=== PATIENT | female | born 1990 | race Caucasian/White ===

== ENCOUNTER 2016-09-11 04:55 | Inpatient (IN) | payer OTHER ==
[~2016-09-11] VITALS: Ht 180.3 cm; Wt 136.1 kg
--- NOTE | 2016-09-11 05:15 | NUR ---
PT TO TRIAGE WITH +SI. STATES SHE HAS NOT BEEN TAKING HER MEDICATIONS THE PAST FEW DAYS AND WAS WALKING AROUND OUTSIDE THIS MORNING WHEN SHE HAD THOUGHTS OF HARMING HERSELF BY TAKING ALL HER MEDICATIONS. DENIES HI.
--- NOTE | 2016-09-11 05:20 | NUR ---
PT WANDED BY SECURITY. CHANGED INTO PAPER SCRUBS. 1 BELONGING BAG IN CLOSETM 2 VALUABLES IN SAFE AND 1 BAG TO PHARMACY.
--- NOTE | 2016-09-11 05:35 | NUR ---
BLOODWORK DRAWN AND SENT OFF TO THE LAB.
[2016-09-11 05:38] LABS: ABSOLUTE BASOPHIL COUNT 0.1 /CUMM (0.0-0.2); ABSOLUTE EOSINOPHIL COUNT 0.3 /CUMM (0.0-0.7); ABSOLUTE GRANULOCYTE CT 12.7 /CUMM (1.4-6.5); ABSOLUTE LYMPH COUNT 2.6 /CUMM (1.2-3.4); ABSOLUTE MONOCYTE COUNT 0.8 /CUMM (0.10-0.60); BASOPHIL % 0.4 % (0.0-2.0); EOSINOPHIL % 1.8 % (0-5); GRANULOCYTE % 77.3 % (42.2-75.2); MEAN CORPUSCULAR HGB 31.6 PG (27.0-31.0); MEAN CORPUSCULAR HGB CONC 33.5 G/DL (33.0-37.0); MEAN CORPUSCULAR VOLUME 94.5 FL (81.0-99.0); MEAN PLATELET VOLUME 8.1 FL (7.4-10.4); PLATELET COUNT 362 /CUMM (130-400); RBC DISTRIBUTION WIDTH 14.5 % (11.5-14.5); RED BLOOD CELL CT 4.45 /CUMM (4.20-5.40); WHITE BLOOD CELL COUNT 16.4 /CUMM (4.8-10.8)
--- NOTE | 2016-09-11 05:46 | NUR ---
PT CALM AND COOPERATIVE, AWARE OF NEED FOR URINE SAMPLE
[2016-09-11] MEDS ORDERED: NEURONTIN300 M1 PO (05:55)
[2016-09-11] MEDS ORDERED: LITHIUM CARBON300 M4 PO (05:56)
[2016-09-11] MEDS ORDERED: BUSPIRONE HCL15 M1 PO (05:56)
[2016-09-11] MEDS ORDERED: MINIPRESS5 MG PO (05:57)
[2016-09-11] MEDS ORDERED: QUETIAPINE FUMA50 M1 PO (05:57)
--- NOTE | 2016-09-11 07:33 | NUR ---
urine obtained and sent to lab
--- NOTE | 2016-09-11 07:33 | ED PSYCHIATRIC COMPLAINT ---
History of Present Illness General Chief Complaint: Psychiatric Related Complaint Stated Complaint: +SI Source: patient, old records Exam Limitations: no limitations Vital Signs & Intake/Output Vital Signs & Intake/Output Vital Signs Date Time Temp Pulse Resp B/P Pulse O2 O2 Flow FiO2 Ox Delivery Rate 09/11 1149 96.9 86 18 143/92 96 Room Air 09/11 0940 97.2 94 20 133/82 95 Room Air 09/11 0518 Room Air 09/11 0505 95.4 97 19 139/81 94 Room Air Triage Note: PT TO TRIAGE WITH +SI. STATES SHE HAS NOT BEEN TAKING HER MEDICATIONS THE PAST FEW DAYS AND WAS WALKING AROUND OUTSIDE THIS MORNING WHEN SHE HAD THOUGHTS OF HARMING HERSELF BY TAKING ALL HER MEDICATIONS. DENIES HI. Triage Nurses Notes Reviewed? yes : No Patient currently breastfeeds: No HPI: Patient presents for evaluation of depression and suicide ideation. Patient states that she was walking around earlier this evening trying to clear her head. That point she became somewhat despondent began thinking of suicide via overdose of the medications that she has not been taking over the past few days. Patient states that her suicide ideation is severe and she felt unsafe. She has cut herself in the past. (GERMAINE SEGUNDO,JOLEEN Mclaughlin) Allergies Coded Allergies: No Known Allergies (09/11/16) Reconcile Medications Gabapentin (Neurontin) 300 MG CAPSULE 1 CAP PO TID NERVE PAIN (Reported) [place] Carbonate 300 MG CAPSULE 1 CAP PO BID BIPOLAR (Reported) Prazosin HCl (Minipress) 5 MG CAPSULE 1 CAP PO QPM HTN (Reported) Quetiapine Fumarate 50 MG TABLET 1 TAB PO QPM BIPOLAR (Reported) (MEGHANN SEGUNDO,ZORA Gan) Past History Travel History Traveled to [place] past 21 day No Medical History Any Pertinent Medical History? see below for history Psychiatric: anxiety, bipolar disease Endocrine: hypothyroidism Surgical History Surgical History: non-contributory Psychosocial History What is your primary language Serbian Tobacco Use: Current Not Daily Daily Tobacco Use Amount/Type: =< 4 Cigarettes daily ETOH Use: occasional use Illicit Drug Use: marijuana Family History Hx Contributory? No (GERMAINE SEGUNDO,JOLEEN Mclaughlin) Review of Systems Review of Systems Constitutional: Reports: no symptoms. EENTM: Reports: no symptoms. Respiratory: Reports: no symptoms. Cardiovascular: Reports: no symptoms. GI: Reports: no symptoms. Genitourinary: Reports: no symptoms. Musculoskeletal: Reports: no symptoms. Skin: Reports: no symptoms. Neurological/Psychological: Reports: see HPI. Hematologic/Endocrine: Reports: no symptoms. Immunologic/Allergic: Reports: no symptoms. All Other Systems: Reviewed and Negative (GERMAINE SEGUNDO,JOLEEN Mclaughlin) Physical Exam Physical Exam General Appearance: SEE BELOW Neurological/Psychiatric: SEE BELOW Comments: General: Alert, calm, cooperative Head: Normocephalic, atraumatic Eyes: Normal inspection, no nystagmus, EOMI Ears: Normal inspection Nose: Normal inspection Throat: Moist mucosa Neck: Supple, no goiter Heart: Regular rate and rhythm, no murmurs rubs or gallops Lungs: Clear to auscultation bilaterally with good air entry Abdomen: Soft nontender nondistended, normal bowel sounds Chest: Nontender Extremities: Normal range of motion grossly, mild tremors present, no cyanosis clubbing or edema of the upper extremities Neurologic: cranial nerves II through XII grossly intact, speech clear, gait normal Psychiatric: No apparent delusions or hallucinations, no pressured speech or thought blocking SAD PERSONS Done? DEFERRED TO CRISIS (GERMAINE SEGUNDO,JOLEEN Mclaughlin) Progress Differential Diagnosis: DEPRESSION, SUICIDE IDEATION, BIPOLAR DISORDER, SCHIZOAFFECTIVE DISORDER, BORDERLINE PERSONALITY Plan of Care: Orders Procedure Date/time Status Regular Diet 09/11 D Active Regular Diet 09/11 B Complete Admit to inpatient psych 09/11 1435 Active Patient Data - inpatient psych 09/11 1306 Active Admit to inpatient psych 09/11 1306 Active Add-on Test (ER Only) 09/11 1039 Active ED CRISIS PSYCH CONSULT 09/11 1038 Active Add-on Test (ER Only) 09/11 0543 Active TSH REFLEX 09/11 0531 Complete TOTAL TRIODOTHYROXINE 09/11 0531 Complete LITHIUM 09/11 0531 Complete FREE T4 09/11 0531 Complete URINE DRUG SCREEN FOR ER ONLY 09/11 0514 Complete THYROID STIMULATING HORMONE 09/11 0514 Complete HUMAN BETA HCG SCREEN 09/11 0514 Complete ETHANOL 09/11 0514 Complete COMPREHENSIVE METABOLIC PANEL 09/11 0514 Complete CBC WITHOUT DIFFERENTIAL 09/11 0514 Complete Vital Signs 09/11 UNK Active Activity/Ambulation 09/11 UNK Active Current Medications Sig/Joe Start time Last Medication Dose Stop Time Status Admin Levothyroxine Sodium 0.05 MG DAILY AC 09/12 0700 UNVr (Synthroid) [place] Carbonate 300 MG AT BEDTIME 09/11 2199 UNVr Prazosin HCl 1 MG QPM 09/11 2199 UNVr (Minipress 5 MG) Quetiapine Fumarate 200 MG AT BEDTIME 09/11 2199 UNVr (Seroquel) Gabapentin 300 MG TID 09/11 1599 CANr (Neurontin) Quetiapine Fumarate 50 MG TID 09/11 1600 UNVr (SEROquel) Laboratory Tests 09/11/16 0727: Urine Opiates Screen < 700.00, Methadone Screen < 40, Barbiturate Screen < 60, Ur Phencyclidine Scrn < 6.00, Amphetamines Screen < 100, U Benzodiazepines Scrn < 85, Urine Cocaine Screen < 50, Urine Cannabis Screen > 80.00 H 09/11/16 0543: TSH &T3 &Free T4 Intrp Cancelled 09/11/16 0531: Anion Gap 12, Estimated GFR > 60, BUN/Creatinine Ratio 13.8, Glucose 106 H, Calcium 9.7, Total Bilirubin 0.9, AST 18, ALT 27, Alkaline Phosphatase 82, Total Protein 7.8, Albumin 4.5, Globulin 3.3, Albumin/Globulin Ratio 1.4, TSH 44.400 H, Free T4 0.74 L, Total T3 1.13, TSH &T3 &Free T4 Intrp 44.400 H, Total Beta HCG NEGATIVE, CBC w Diff NO MAN DIFF REQ, RBC 4.45, MCV 94.5, MCH 31.6 H, RDW 14.5, MPV 8.1, Gran % 77.3 H, Lymphocytes % 15.8 L, Monocytes % 4.7, Eosinophils % 1.8, Basophils % 0.4, Absolute Granulocytes 12.7 H, Absolute Lymphocytes 2.6, Absolute Monocytes 0.8 H, Absolute Eosinophils 0.3, Absolute Basophils 0.1, PUBS MCHC 33.5, [place] < 0.2 L, Serum Alcohol < 10.0 Departure Departure Condition: Stable Referrals: PATIENT HAS NO PRIMARY CARE DR (PCP/Family) Departure Forms: Customer Survey General Discharge Information (GERMAINE SEGUNDO,JOLEEN Mclaughlin) Departure Disposition: STILL A PATIENT Clinical Impression Primary Impression: Depression Secondary Impressions: Hypothyroid Psych Admission Note Psychiatric Admission: I have seen and evaluated SWATI TRACY. I have also reviewed all the pertinent lab results and diagnostic results. SWATI TRACY will be admitted to our inpatient Psychiatric unit for treatment and care. (MEGHANN SEGUNDO,ZORA Gan)
--- NOTE | 2016-09-11 08:01 | NUR ---
ASSUMED CARE OF PT AT THIS TIME. PT SLEEPING ON STRETCHER, REG RESP RATE NOTED. SITTER REMAINS PRESENT AT THIS TIME. WILL CTM
--- NOTE | 2016-09-11 10:51 | NUR ---
CRISIS AT BEDSIDE
[2016-09-11 11:13] LABS: LITHIUM < 0.2 mmol/L (0.6-1.2)
--- NOTE | 2016-09-11 11:50 | NUR ---
PT MEDICATED WITH SYNTHROID 0.05MG AND NEURONTIN 300MG. PT IS CALM AND COOPERATIVE AT THIS TIME. PT ASKED THAT THE LIGHT BE TURNED OFF IN ROOM 15 DUE TO HEADACHE. PT REPORTS THE NEURONTIN WILL HELP WITH HER HEADACHE. SITTER AT DOOR FOR SAFETY.
--- NOTE | 2016-09-11 13:09 | ED PSYCH CRISIS CONSULTATION ---
Crisis Consult Basic Assessment Date of Consult: 09/11/16 Responsible Person/Accompanied By: Kye Garcia, father Insurance Authorization: Insurance #1: Insurance name: ELADIO GARCIA Phone number: Policy number: [id number] Group number: Authorization number: ED Provider: Patient's ED Provider: JOLEEN [place] MD Primary Care Physician: Patient's PCP: PATIENT HAS NO PRIMARY CARE DR PCP's Phone Number: Current Psychiatrist: none now was Dr at [facility] seen once Chief Complaint: Psychiatric Related + S.I. Patient's Quote: " I just stopped my meds. Clementina been cutting. Thinking/planning O.D. Present Illness: Patient is a 25 year old unmarried, causasian female who came to [facility] on own, after being "kicked out" of the current place that she has been staying which was in [place]. Patient reports feeling frustrated and suicidal due to her life "going nowhere", and her not having any place to stay, reg with others since she was discharged from [facility] in [place] as her 90 day stay was over. Patient had gotten to [facility] after being in [facility], and being hospitalized 3 times in 2016 (at [place]; [place]; and [facility]), for suicidal ideation, and having had an attempt with pills, in addition to cutting serlf, although that was mostly superficial and more for relief of anxiety. Patient reports life got much wirse since her mother 3 years ago, and at that time she had to find alternate places to stay, many of which carried conditions that she perform some services. Patient has had jobs, but has no real body of work, having lost many jobs due to stealing. 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 Apparently mother did not push patient very much, and patient helped care for her grandmother whose house they lived in, and then her mother when she got ill. Eventually she was evicted, and found self going from place to place, and started using heroin: 2-3 bundles/day. She states that she has been completely clean since February of 2016, and only used "some weed when I stopped my meds about one wek ago" Patient cites only support is her father, and she is hopeful that she could return to his home at some point after proving that she was clean. Spoke with father and his who say that that can't happen because she has stolen from them too many times. Patient is despondent about situation, which she knows she has caused. Patient's Address: [address] [place] [address] Other Phone Number: Who Do You Live With? Other (see notes) (various friends) Family/Informants Interviewed: Father, Kye Garcia step-mother, Leslie Allergies - Coded Allergies: No Known Allergies (09/11/16) Current Medications - Scheduled Medications Gabapentin (Neurontin) 300 MG CAPSULE 1 CAP PO TID NERVE PAIN (Reported) Entered as Reported by ARMINDA MENENDEZ on 09/11/16554 Last Taken: At an unknown date and time [place] Carbonate 300 MG CAPSULE 1 CAP PO BID BIPOLAR (Reported) Entered as Reported by ARMINDA MENENDEZ on 09/11/16555 Last Taken: At an unknown date and time Prazosin HCl (Minipress) 5 MG CAPSULE 1 CAP PO QPM HTN (Reported) Entered as Reported by ARMINDA MENENDEZ on 09/11/16556 Last Taken: At an unknown date and time Quetiapine Fumarate 50 MG TABLET 1 TAB PO QPM BIPOLAR (Reported) Entered as Reported by ARMINDA MENENDEZ on 09/11/16556 Last Taken: At an unknown date and time Discontinued Medications Buspirone HCl 15 MG TABLET 1 TAB PO BID ANXIETY (Reported) Discontinued reason: Med no longer needed Last Taken: At an unknown date and time Laboratory Results: Laboratory Tests 09/11/16726: Urine Opiates Screen < 700.00, Methadone Screen < 40, Barbiturate Screen < 60, Ur Phencyclidine Scrn < 6.00, Amphetamines Screen < 100, U Benzodiazepines Scrn < 85, Urine Cocaine Screen < 50, Urine Cannabis Screen > 80.00 H 09/11/1643: TSH &T3 &Free T4 Intrp Cancelled 09/11/1631: Anion Gap 12, Estimated GFR > 60, BUN/Creatinine Ratio 13.8, Glucose 106 H, Calcium 9.7, Total Bilirubin 0.9, AST 18, ALT 27, Alkaline Phosphatase 82, Total Protein 7.8, Albumin 4.5, Globulin 3.3, Albumin/Globulin Ratio 1.4, TSH 44.400 H, Free T4 0.74 L, Total T3 1.13, TSH &T3 &Free T4 Intrp 44.400 H, Total Beta HCG NEGATIVE, CBC w Diff NO MAN DIFF REQ, RBC 4.45, MCV 94.5, MCH 31.6 H, RDW 14.5, MPV 8.1, Gran % 77.3 H, Lymphocytes % 15.8 L, Monocytes % 4.7, Eosinophils % 1.8, Basophils % 0.4, Absolute Granulocytes 12.7 H, Absolute Lymphocytes 2.6, Absolute Monocytes 0.8 H, Absolute Eosinophils 0.3, Absolute Basophils 0.1, PUBS MCHC 33.5, [place] < 0.2 L, Serum Alcohol < 10.0 Past History Past Medical History Psychiatric: anxiety, bipolar disease Endocrine: hypothyroidism Past Surgical History Surgical History: non-contributory Psychosocial History Strengths/Capabilities: resilient intelligent Physical Limitations (Interventions): none Psychiatric Treatment History Psych Treatment Psychiatric Treatment Yes Inpatient Treatment Yes Outpatient Treatment Yes Location of Treatment [facility] Reason for Treatment Schizoaffective suicidal ideation Dates of Treatment one admit at 14 y. o. # in 2016, and once in 2009 and 2011 ? Response to Treatment stabilized Diagnosis by History: Schizoaffective bipolar opiate use disorder Substance Use/Abuse History Drug Use/Abuse 1 Substances Used/Abused Yes Substance Used/Abused Marijuana First Use age 14 Last Used yesterday How much used/taken joint How often had been very , but clean completely since 03-01, until last week For how long 10 years Route of use smoke Drug Use/Abuse 2 Substances Used/Abused Yes Substance Used/Abused Heroin First Use age 21 Last Used early 2015 How much used/taken up to 2-3 bundles/day How often daily For how long 3.5 years Route of use i v Substance Abuse Treatment Substance Abuse Treatment Past Substance Abuse [place] Yes Inpatient Treatment Yes Outpatient Treatment Yes Location of Treatment [facility] Reason for Treatment Opiate Dep Dates of Treatment 2016 Response to Treatment got clean since 03/01 Comments: lengthy history of substance since high school Current Mental Status Mental Status Orientation: Person, Place, Situation Affect: Anxious, Blunted, Constricted Speech: WNL Neuro-vegetative: Energy Decreased, Sleep Disturbance Appearance Appearance- Dress/Hygiene: disheveled tatoos and piercings heavyset Behaviors Thought Process: WNL Thought Content: Auditory Hallucinations, Thought Blocking Memory: WNL Insight: Poor SI/HI Risk Assessment Past Suicidal Ideation/Attempts Yes Current Suicidal Ideation/Att Yes Past Homicidal Ideation/Att: No Current Homicidal Ideation/Attempts No Degree of Intent: Plan Danger To: Self Gravely Disabled: Poor Judgment Risk Factors: access to lethal means, chronic/serious med cond., high anxiety/ distress, history of Violence, history of suicide atmpts, SA/MH hospitalized, substance abuse, isolate/no social support, poor impulse control, limited support Lethality Ratin PTSD Checklist PTSD Done? pt unable to participate ED Management Sitter: Yes Restraints: No DSM5/PS Stressors/Medical Prob Diagnosis' (DSM 5, Stressors, Medical): Schizoaffective, bipolar F25.0 Cannabis use disorder, moderate F121.20 Current GAF: 25 Comments: patient inexplicably stopped medication on own despite trying to get back in good graces with father, her only potential support. long history of very poor judgement and impulse control. Departure Disposition Psych Medical Clearance Date: 09/11/16 Medically Cleared at: 1100 Time Started: 1105 Time Ended: 1150 Psychiatrist Consulted: Dr Rinaldi Time Disposition Established: 1200 Plan for Disposition - Modality: Inpatient Psychiatry Facility: [facility] Rationale for Disposition: patient off meds, and suicidal with plan and history of attempt Type of IP Admission: Voluntary Referrals PATIENT HAS NO PRIMARY CARE DR (PCP/Family)
--- NOTE | 2016-09-11 13:27 | NUR ---
PT MEDICATED WITH MOTRIN 600MG FOR HEADACHE, PIS 7/. APPLIED NICODERM PATCH 21MG TO PT'S LEFT UPPER ARM. PT IS CALM AND COOPERATIVE, WATCHING TV IN ROOM 15 WITH LIGHT OFF. SITTER PRESENT FOR SAFETY.
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
--- NOTE | 2016-09-11 14:57 | CPS MD/APRN INITIAL ASSE PSYCH ---
Psychiatric Admission Production Finisher's Note Reviewed: Yes Patient Seen and Examined: Yes Identifying Information: 25yoF with Schizoaffective disorder and PSD Chief Complaint: "I can't do this anymore" Reaction to Hospitalization: unable to assess at this time History of Present Illness Onset of Illness: past month Circumstances Leading to Admission: unstable housing Problem(s) Justifying Need for Admission: worsening mood and SI Other HPI: Pt notes that discharged from [facility] after her time was complete. She was staying with friends but they "were the wrong people" as ongoing substance use and interpersonal conflict. She decided to try and stay with another friend in [place] but this did not work out. She notes worsening mood, poor sleep, ongoing AHs of voices, and hopelessness. She has been off meds for the past few weeks. Notes passive SI, AHs, some paranoia. Denies recent manic episode. Past Psychiatric History Past Diagnosis(es)- if any: Schizoaffective disorder ND CUD OUD, full sustained remission past 8 months Past Precipitating Factors- if any: unstable housing - Include inpatient and outpatient treatment Treatment History: Tx at [facility] History of Suicide Attempts or Gestures In Feb 2015 wanted to jump off bridge in [place] In May 2014, attempted OD on OTC sleep meds Substance Abuse History: Tobacco: 1ppd Alcohol: rarely Illicits: heroin, last eight months ago, before 2-3 bundles daily; mj occasionally Allergies: Coded Allergies: No Known Allergies (09/11/16) Home Med List: Pt not taking meds for several weeks [place] Seroq[place] Gabapentin Prazosin - Include any medical condition(s) that may - impact the patient's recovery/remission Past Medical History: Hypothyroidism Past History Medical History Blood Transfusion Hx: No Neurological: NONE EENT: NONE Cardiovascular: NONE Respiratory: NONE Gastrointestinal: NONE Hepatic: NONE Renal: NONE Musculoskeletal: NONE Psychiatric: anxiety, bipolar disease Endocrine: hypothyroidism Surgical History Surgical History: none Psychiatric Family/Social Hx Family History Psychiatric Illness: Mother with depression and anxiety Substance Use: Denied Suicides: Denied Social History Living Situation: Homeless, wants to try and live with father if unable to get into residental program Significant Relationships (family/friends): Very few, ?father Education: 9th grade, dropped out becuase she was always in trouble Vocation/Occupation: Unemployed Legal: Denied Healthly Behaviors Screening Tobacco Screening Tobacco Use from ED Docu: Current Daily Use Daily Tobacco Use Amount/Type: =< 4 Cigarettes daily - If tobacco counseling indicated - the following topics are required. - #1 Recognizing dangerous situations. - #2 Coping Skills. - #3 Basic information about quitting. Status of Tobacco Cessation Counseling: #1, #2 AND #3 Completed Cessation Med Status: Nicotine Patch Ordered (and gum ordered) Alcohol Screening - ETOH screen POS if BAL >=80 or Audit-C>= M4/F3 Audit-C Score from Diag Assess: 0 Blood Alcohol Level: Laboratory Tests 09/11 0531 Toxicology Serum Alcohol (<10 MG/DL) < 10.0 Alcohol Use Screening Results: Neg per Audit C &/or BAL - If ETOH counseling indicated - the following topics are required. - #1 Express concern about the patient's - drinking at unhealthy levels, include informing - of national norms for moderate drinking: - men <= 14 drinks/week, max 4 drinks/occasion - women <= 7 drinks/week, max 3 drinks/occasion - #2 Providing feedback, including linking alcohol to - negative physical effects (liver injury, hypertension) - negative emotional effects (relationship problems and - depression) - negative occupational consequences (reduced work - performance) - #3 Advising the patient to abstain from alcohol or - to drink below national norms for moderate drinking - (as listed above). Status of ETOH Use Counseling: N/A B/C NO ETOH Use Metabolic Screening - Screen if on a Neuroleptic Medication - Metabolic screening should include: - Blood Pressure, BMI, Glucose or Hgb A1c, & a - Lipid profile from within the past 365 days. Metabolic Screening () Patient on a neuroleptic(s) . Enter below results for Glucose or Hemoglobin A1C, and lipid panel if obtained during the last 365 days. Pending Blood Pressure: 143/92 Exam and Plan Mental Status Examination Ambulation Status: walking freely, sitting most of the exam Appearance: slightly dishelved, partially shaved head, tatoos Attitude towards examiner: cooperative Psychomotor activity: no none Behavior: cooperative, engaged Quality of speech: nl r/r/p, not pressured Affect: sad, depressed, tearful at times, slightly labile, appropriate Mood: "I just can't go on" Suicidal Ideation: +passive SI Homicidal Ideation: denied Hallucinations: AHs of voices Paranoid/Delusional Material: slight around people staying with Difficulties with thought organization: none, linear and goal directed Insight: fair Judgment: fair Orientation: a/o x4 Cognition: grossly intact Memory Function: grossly intact Estimate of intellectual functioning: average Assets/Strengths Patient Identified Assets/Strengths: wants help, has some family Impression/Plan Impression and Plan: Pt with hx of Schizoaffective disorder and PSD with worsening mood in the setting of homelessness and medication non-compliance. - Include all active medical diagnosis that require tx DSM 5 Diagnosis(es): Schizoaffective disorder PSD - Initial Tx Plan for Active Psych & Medical Conditions Treatment Plan: - Restart lithium at 300mg daily - Discontinue seroquel as not helpful - Start risperidone 0.5mg daily and 1.5mg nightly - Continue gabapentin at 300mg TID - Prazosin restarted at 1mg qhs - Trazodone and hydroxyzine PRNs written - Lipids, A1C, and B12 at AM - Levothyroxine started at ED for hypothyroidism, to continue - Encourage groups and intergration into milieu - Pt would benefit from family meeting with father - Factors that would help patient function - in a less restrictive setting. Factors: stable housing, outpatient f/u
[2016-09-11 16:23] VITALS: BP 152/92
[2016-09-11 19:45] VITALS: BP 146/95
--- NOTE | 2016-09-11 21:38 | RADIOLOGY REPORT ---
EXAMINATION: XR CHEST 2 VIEWS CLINICAL INFORMATION: Cough, expectoration and occasional hemoptysis; question pneumonia. COMPARISON: None. TECHNIQUE: Frontal and lateral views of the chest were obtained. FINDINGS: The heart, great vessels, pulmonary vasculature and mediastinum are normal. The lungs show no focal infiltrate, effusion or pneumothorax. Breast shadows overlie the bilateral lung bases on the frontal view. There is no acute osseous abnormality. IMPRESSION: No active cardiopulmonary disease.
--- NOTE | 2016-09-11 23:01 | NUR ---
PT IS CALM, COOPERATIVE WITH STAFF AND PEERS, AND COMPLAINT WITH UNIT RULES. PT IS OFTEN IN [place], INTERACTING WELL WITH OTHERS. MOOD IS STABLE, AFFECT APPEARS EUTHYMIC TO FULL RANGE, COMMUNICATION IS NORMAL, AND APPETITE IS NORMAL. PT DENIES SI AT THIS TIME.
[2016-09-11] MEDS ORDERED: SYNTHROID175 MCG PO (23:08)
--- NOTE | 2016-09-11 23:31 | NUR ---
PT ADMITTED TO CPS FOR EXACERBATION IN PSYCHIATRIC SYMPTOMS AFTER STOPPING ALL MEDS LAST WEEK. PT REPORTED INCREASE IN DEPRESSION WITH SI, ANXIETY, AND AUDITORY HALLUCINATIONS. DURING INTERVIEW, PT DENIED SI AND AGREED TO TELL STAFF IF THOUGHTS OF SELF HARM RETURN. "CONSTANT" AUDITORY HALLUCINATIONS OF SEVERAL PEOPLE CONVERSING WITH EACH OTHER. DID HAVE COMMAND TYPE HALLUCINATION OF MALE VOICE "TWO DAYS AGO." TODAY THIS MALE VOICE "TELLS ME I'M WORTHLESS." PT WITH PRODUCTIVE COUGH X PAST MONTH. DENIES SOB. "ASTHMA A CHILD" SMOKES CIGARETTES. MOTHER FROM COMPLICATIONS OF COPD. AFEBRILE. HYPERTENSIVE, THOUGH NO KNOWN CARDIAC HX. PT DOES HAVE HX OF HYPOTHYROIDISM AND STATED SHE TAKES SYNTHROID 125MCG DAILY. PT ALSO OBESE. PT ADMITTED TO SMOKING MARIJUANA BUT HAS BEEN SOBER FROM ALCOHOL "SINCE DECEMBER" AND "ALL OTHER DRUGS SINCE FEBRUARY." PT PLEASANT AND COOPERATIVE. SHE PRESENTED THOUGHTS CLEARLY AND LOGICALLY. THOUGH FEELING DEPRESSED, HELPLESS, AND HOPELESS, PT DEMONSTRATED FULL RANGE OF AFFECT. C/O HEADACHE "8." DR GOOD MADE AWARE OF PT STATUS AND NEED FOR H&P WHICH HAS BEEN COMPLETED. BLOOD CULTURES, HIV TEST, AND SPUTUM CULTURE ORDERED AND ALL HAVE BEEN COLLECTED AND SENT TO LAB. CXR ORDERED AND COMPLETED. CLEAN CATCH URINE SPECIMEN STILL NEEDED PT DID NOT PROVIDE ADEQUATE SAMPLE. NEEDS TO BE COLLECTED
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
--- NOTE | 2016-09-12 01:00 | Admission Certification ---
Admission Certification Certification Statement - As attending physician, I certify that at the time of - admission, based on clinical presentation, severity of - symptoms, need for further diagnostic testing and - therapeutic interventions, and risk of adverse outcomes - without in-hospital treatment, in my clinical assessment, - this patient requires an acute hospital stay for a minimum - of two nights or longer. I have also considered psychsocial - factors such as support system, advanced age, financial - issues, cognitive issues, and failed out-patient treatments, - past re-admission history, safety of patient, and lack of - compliance as applicable. Specific rationale supporting this admission is: Depression and suicidal ideation
[2016-09-12 07:40] VITALS: BP 146/91
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
[2016-09-12 12:22] VITALS: BP 127/92
--- NOTE | 2016-09-12 13:19 | Cons- Endocrinology ---
General Information and HPI Consulting Request Date of Consult: 09/12/16 Requested By: Manuel Reason for Consult: management of hypothyroidism Source of Information: patient Exam Limitations: no limitations History of Present Illness: 25 Yo F with PMHx hypothyroidism, bipolar disorder, history of drug abuse presented with suicidal ideation. Patient was admitted in Inpatient Psychiatry for depression, suicidal ideation, auditory hallucinations. Blood work done on 09/11/2016 showed TSH 44.4, free T4 0.74 and TT3 1.13. She was diagnosed with hypothyroidism at age of 10 and was supposed to be on Levothyroxine 125 mcg daily. However, she ran out of her thyroid medication about one week ago. Allergies/Medications Allergies: Coded Allergies: No Known Allergies (09/11/16) Home Med List: Gabapentin (Neurontin) 300 MG CAPSULE 1 CAP PO TID NERVE PAIN (Reported) Levothyroxine Sodium (Synthroid) 125 MCG TABLET 1 TAB PO DAILY THYROID PROBLEMS (Reported) [place] Carbonate 300 MG CAPSULE 1 CAP PO BID BIPOLAR (Reported) Prazosin HCl (Minipress) 5 MG CAPSULE 1 CAP PO QPM HTN (Reported) Quetiapine Fumarate 50 MG TABLET 1 TAB PO QPM BIPOLAR (Reported) Review of Systems Review of Systems Constitutional: Reports: see HPI. Cardiovascular: Denies: chest pain, palpitations. Respiratory: Denies: short of breath. GI: Denies: abdominal pain. Genitourinary: Denies: dysuria. Hematologic/Endocrine: Reports: see HPI (fatigue and mood changes). Past History Travel History Traveled to [place] past 21 day No Medical History Blood Transfusion Hx: No Neurological: CHRONIC HEADACHES EENT: NONE Cardiovascular: NONE Respiratory: asthma Gastrointestinal: NONE Hepatic: NONE Renal: NONE Musculoskeletal: NONE Psychiatric: anxiety, bipolar disease, depression, SCHIZOAFFECTIVE Endocrine: hypothyroidism Blood Disorders: NONE Cancer(s): NONE SUPERVISOR TRAIN OPERATIONS/Reproductive: NONE Surgical History Surgical History: non-contributory Family History Relations & Conditions If Any: FATHER FH: diabetes mellitus FH: HTN (hypertension) MOTHER FH: COPD (chronic obstructive pulmonary disease) FH: HTN (hypertension) Psychosocial History Where Do You Live? Other (multiple places) Services at Home: None Primary Language: Monegasque Smoking Status: Current Everyday Smoker (1 ppd) ETOH Use: occasional use Illicit Drug Use: denies illicit drug use (hx heroine smok, cocaine snort), marijuana Living Will? unknown Power of Conductor/Engineer/HCP? unknown Functional Ability ADLs Independent: dressing, eating, toileting, bathing. Ambulation: independent IADLs Independent: shopping, housework, finances, food prep, telephone, transportation , medication admin. Employment History Employment: Unemployed Exam & Diagnostic Data Last 24 Hrs of Vital Signs/I&O Vital Signs Date Time Temp Pulse Resp B/P Pulse O2 O2 Flow FiO2 Ox Delivery Rate 09/12 1222 88 127/92 09/12 1125 Room Air 09/12 0740 97.0 96 146/91 09/11 2101 Room Air 09/11 1945 97.6 90 146/95 09/11 1623 97.8 93 152/92 09/11 1458 97.2 88 16 155/99 96 Room Air Intake & Output 09/12 1600 09/12 0800 09/12 0000 Intake Total Output Total Balance Patient 300 lb Weight Physical Exam General Appearance: no apparent distress Neck: thyromegaly (especially in her isthmus) Respiratory: lungs clear Cardiovascular: regular rate/rhythm Gastrointestinal: soft, non-tender Extremities: no edema Labs/Carroll Results: Laboratory Tests 09/12 09/12 09/11 0630 0630 2306 Chemistry Hemoglobin A1c (4.2 - 5.8 %) Cancelled 5.3 Triglycerides (<150 mg/dL) 100 Cholesterol (<200 MG/DL) 182 LDL Cholesterol, Calc (65 - 129 mg/dL) 120 HDL Cholesterol (40 - 60 mg/dL) 42 Cholesterol/HDL Ratio (0.00 - 4.23 %) 4 Vitamin B12 (239 - 931 pg/mL) 415 Serology HIV 1&2 Ab Western Blot (NONREACTIVE) NONREACTIVE 09/11 09/11 0727 0543 Chemistry TSH &T3 &Free T4 Intrp Cancelled Toxicology Urine Opiates Screen (>2000 NG/ML) < 700.00 Methadone Screen (>300 NG/ML) < 40 Barbiturate Screen (>200 NG/ML) < 60 Ur Phencyclidine Scrn (>25 NG/ML) < 6.00 Amphetamines Screen (>1000 NG/ML) < 100 U Benzodiazepines Scrn (>200 NG/ML) < 85 Urine Cocaine Screen (>300 NG/ML) < 50 Urine Cannabis Screen (>50 NG/ML) > 80.00 H 09/11 0531 Chemistry Sodium (137 - 145 mmol/L) 142 Potassium (3.5 - 5.1 mmol/L) 4.3 Chloride (98 - 107 mmol/L) 104 Carbon Dioxide (22 - 30 mmol/L) 26 Anion Gap (5 - 16) 12 BUN (7 - 17 mg/dL) 11 Creatinine (0.5 - 1.0 mg/dL) 0.8 Estimated GFR (>60 ml/min) > 60 BUN/Creatinine Ratio (7 - 25 %) 13.8 Glucose (65 - 99 mg/dL) 106 H Calcium (8.4 - 10.2 mg/dL) 9.7 Total Bilirubin (0.2 - 1.3 mg/dL) 0.9 AST (14 - 36 U/L) 18 ALT (9 - 52 U/L) 27 Alkaline Phosphatase (<127 U/L) 82 Total Protein (6.3 - 8.2 g/dL) 7.8 Albumin (3.5 - 5.0 g/dL) 4.5 Globulin (1.9 - 4.2 gm/dL) 3.3 Albumin/Globulin Ratio (1.1 - 2.2 %) 1.4 TSH (0.270 - 4.200 uIU/mL) 44.400 H Free T4 (0.79 - 2.35 ng/dL) 0.74 L Total T3 (0.97 - 1.69 ng/mL) 1.13 TSH &T3 &Free T4 Intrp (0.270 - 4.20 uIU/mL) 44.400 H Total Beta HCG (NEGATIVE) NEGATIVE Hematology CBC w Diff NO MAN DIFF REQ WBC (4.8 - 10.8 /CUMM) 16.4 H RBC (4.20 - 5.40 /CUMM) 4.45 Hgb (12.0 - 16.0 G/DL) 14.1 Hct (37 - 47 %) 42.0 MCV (81.0 - 99.0 FL) 94.5 MCH (27.0 - 31.0 PG) 31.6 H RDW (11.5 - 14.5 %) 14.5 Plt Count (130 - 400 /CUMM) 362 MPV (7.4 - 10.4 FL) 8.1 Gran % (42.2 - 75.2 %) 77.3 H Lymphocytes % (20.5 - 51.1 %) 15.8 L Monocytes % (1.7 - 9.3 %) 4.7 Eosinophils % (0 - 5 %) 1.8 Basophils % (0.0 - 2.0 %) 0.4 Absolute Granulocytes (1.4 - 6.5 /CUMM) 12.7 H Absolute Lymphocytes (1.2 - 3.4 /CUMM) 2.6 Absolute Monocytes (0.10 - 0.60 /CUMM) 0.8 H Absolute Eosinophils (0.0 - 0.7 /CUMM) 0.3 Absolute Basophils (0.0 - 0.2 /CUMM) 0.1 PUBS MCHC (33.0 - 37.0 G/DL) 33.5 Toxicology [place] (0.6 - 1.2 mmol/L) < 0.2 L Serum Alcohol (<10 MG/DL) < 10.0 Assessment/Plan Assessment/Plan 25 Yo F with PMHx hypothyroidism, bipolar disorder, history of drug abuse presented with suicidal ideation. Patient was admitted in Inpatient Psychiatry for depression, suicidal ideation, auditory hallucinations. Blood work done on showed TSH 44.4, free T4 0.74 and TT3 1.13. She was supposed to be on Levothyroxine 125 mcg daily. However, she ran out of her thyroid medication about one week ago. In hospital, she was put on Levothyroxine 50 mcg daily. Hypothyroidism: 1. I will give patient additional Levothyroxine 100 mcg this afternoon. 2. starting tomorrow, she will be on Levothyroxine 125 mcg daily; 3. I will check TFT and thyroid antibody on 09/15/2016. 4. I will recommend having a thyroid u.s done. will follow. Consult Acknowledgment - Thank you for your consult request.
--- NOTE | 2016-09-12 13:30 | SOCIAL WORKER PROG NOTE PSYCH ---
See Addendum Social Work Progress Note Progress Note SW met with patient for the first time today. Patient presented as tearful and depressed. She reported feeling very overwhelmed due to "constant chatter". Patient reports hearing continuously throughout the day up to 6 different voices talking to eachother. She is unable to makeout what the voices are saying and they are not command in nature. Patient reports that she does not feel the medication she is on is helpful and wishes for a change. Patient reports that she is currently homeless and is unsure where she will go post discharge from the hospital. This press writer went over the possibility of patient needing to call 211 for a care home bed. Patient was provided a list of sober houses to call and she is going to see if they take basic needs for payment. Patient signed NIKO for this press writer to speak to her father, Kye ([phone]), and this press writer called and spoke to him. Kye reported that he is currently out of work because their house is being remodeled. He reports that he recently was discharged from the hospital due to cardiac issues. He reported that he plans to return to work on Monday and does not believe he will have time to come in for a family meeting between the house remodeling/returning to work. He did agree to have a phone conference this afternoon at 4pm. Patient plans to discuss with him the potential of becoming homeless and wishing to stay with him before securing a bed at a care home.
--- NOTE | 2016-09-12 14:16 | NUR ---
Notified by patient hearing voices increasing this afternoon. "I couldn't even sit in group." Patient reports no SI or HI at this time. Marci Burton APRN notified of this. See EMAR. Will continue to monitor.
--- NOTE | 2016-09-12 14:55 | NUR ---
PT IS OUT IN COMMUNITY INTERACTING WITH STAFF AND PEERS. PT IS COMPLIANT AND COOPERATIVE WITH STAFF. PT IS ACTIVE IN GROUPS. PT MOOD IS STABLE WTIH A FULL RANGE AFFECT. PT REPORTS HEARING VOICES. PT DENIES SI THOUGHTS
[2016-09-12 15:51] VITALS: BP 139/96
[2016-09-12 19:40] VITALS: BP 141/80
--- NOTE | 2016-09-12 21:16 | NUR ---
PT IS WIRHDRAWN, IN [place], THOUGH MOSTLY STAYING TO SELF, NOT INTERACTING MUCH WITH OTHERS UNLESS DIRECTLY ENGAGED. PT IS CALM, COOPERATIVE WITH STAFF AND PEERS, AND COMPLIANT WITH UNIT RULES. MOOD IS STABLE, AFFECT IS EUTHYMIC, COMMUNICATION IS NORMAL BUT SPARSE, AND APPETITE IS NORMAL. PT DENIES SI AT THIS TIME.
--- NOTE | 2016-09-13 04:44 | NUR ---
PT APPEARED TO SLEEP THRU THE NIGHT. BORDERLINE EKG TO BE EVALUATED DURING THE DAY TODAY.
--- NOTE | 2016-09-13 04:45 | NUR ---
PT IN BED EARLY, APPEARED TO SLEEP THRU THE NIGHT, SOCIAL WITH SELECT PEERS.
[2016-09-13 07:41] VITALS: BP 150/90
--- NOTE | 2016-09-13 08:35 | CP SOUTH PROGRESS NOTE PSYCH ---
Psych (Inpt) Progress Note Progress Note Include the following elements, when applicable: Involvement in the active treatment of the patient with behavioral observations of the patient and the patient's response to the treatment. Review of the ongoing treatment process in the context of the treatment plan. Indication of how multi-disciplinary staff members are carrying out the treatment plan. Plans for future interventions and recommendations for revision of the treatment plan. Liaison with other physicians/providers. Progress Note: [I discussed this patient's progress to date, current mental status, treatment process in the context of the treatment plan, and discharge planning with staff/ team in the daily morning inpatient team meeting. I also met with the patient myself in individual session.] SUBJECTIVE: "I only slept a few hours last night." OBJECTIVE: Current Medications Sig/Joe Start time Last Medication Dose Route Stop Time Status Admin Acetaminophen 650 MG Q4P PRN 09/12 0845 AC 09/12 PO 0845 Albuterol Sulfate 2 PUF Q4P PRN 09/12 1130 AC INH Azithromycin 250 MG DAILY 09/12 1000 AC 09/13 PO 09/15 1001 0845 Benztropine Mesylate 1 MG 0800,09/12 2200 AC 09/13 PO 0844 Chlorpromazine 25 MG 0809/14 0800 AC PO Chlorpromazine 50 MG 09/13 2200 AC PO Gabapentin 300 MG Q8 09/11 1400 AC 09/13 PO 1352 Hydroxyzine HCl 25 MG Q6PRN PRN 09/11 1500 DC 09/12 PO 1414 Levothyroxine Sodium 0.125 MG DAILY AC 09/13 0700 AC 09/13 PO 0653 [place] Carbonate 300 MG 00 09/12 1000 AC 09/13 PO 0844 [place] Carbonate 300 MG AT BEDTIME 09/11 2200 AC 09/12 PO 2137 Nicotine 21 MG DAILY 09/12 1000 AC 09/13 TOP 0844 Nicotine 2 MG Q2P PRN 09/11 1500 AC 09/13 PO 0846 Prazosin HCl 3 MG QPM 09/13 2200 AC PO Prazosin HCl 2 MG QPM 09/12 2200 DC 09/12 PO 2137 Prazosin HCl 1 MG QPM 09/11 2200 DC 09/11 PO 2130 Risperidone 1 MG 0800 09/13 0800 DC 09/13 PO 0845 Risperidone 2 MG AT BEDTIME 09/12 2200 DC 09/12 PO 2137 Risperidone 0.25 MG Q8P PRN 09/12 1700 DC PO Risperidone 0.5 MG ONE TIME ONE 09/12 1515 DC 09/12 PO 09/12 1516 1509 Risperidone 0.5 MG DAILY 09/12 1000 DC 09/12 PO 0759 Risperidone 1.5 MG AT BEDTIME 09/11 2200 DC 09/11 PO 2130 Trazodone HCl 50 MG .STK-MED ONE 09/12 2133 DC PO 09/12 2133 Trazodone HCl 50 MG AT BEDTIME NEED.. 09/11 1500 DC 09/12 PO 213 Vital Signs Date Time Temp Pulse Resp B/P Pulse O2 O2 Flow FiO2 Ox Delivery Rate 09/13 0741 97.8 98 150/90 09/12 2136 98.1 99 16 141/80 09/12 1940 98.1 99 141/80 09/12 1551 84 139/96 09/12 1222 88 127/92 09/12 1125 Room Air ASSESSMENT: Chart, progress notes, VS, labs, EKG (from last evening) and medication list were reviewed. Met with patient today. She presented A&Ox 4. Speech was normal in rate tone and volume. Eye contact was appropriate. Mood remained "anxious." Affect appeared constricted. She reported sleeping poorly d/t continued +AH and NMAs. She reported hearing 5 voices last night of "chatter." Patient reported she could not identify the content of AH. She reported an absence of AH at present. Patient asked again about starting Thorazine to manage AH given past positive efficacy during [facility] admission in summer. NIKO was obtained from patient to retrieve medical records from [facility]. Patient denied SEs while on Thorazine. Patient reported anxiety of 7/10 (10 being the worst) and depression of 8/10 (10 being the worst). She denied passive and active suicidal ideation, plans and intent. She denied visual hallucinations and homicidal ideation. There was no evidence of paranoia or genevieve delusions. Thought process was linear. Thought content was appropriate. Coginition was grossly intact. She reported having a good appetite and reported energy level was low r/t to poor sleep. There was no evidence of joyce/hypomania. Will switch Risperdal to Thorazine to further target AH. Reviewed risk/benefit/ SE profiles of Thorazine with the patient, who verbalized understanding of medication and was agreeable to trial. Will increase Prazosin from 2mg QHS to 3mg QHS to further target NMA. Patient agreeable to plan. Patient reported tolerating all medications well and denied untoward medication effects. No evidence of movement disorder. AIMS=0. Phone conference was held with the patient, her father, Divine JaffeROBERT mar, and this copywriter. The patient asked her father if she could stay with him and step-mother in their home temporarily while waiting for a group home placement. The patient's father reported that she could not return to their home, as he and his need to stay at a hotel for 1-2 weeks given work being done on their home. The patient's father also reported that it was not an option for the patient to return to their home without them present, nor was it an option for the patient to stay at a hotel with them. The patient appeared sad and dismissed by her father following phone conference. She felt that her step-mother influenced her father's decision and reported having a poor relationship with her. We discussed with the patient other housing options such as sober homes, shelters and Crisis and Respite. Patient reported calling [address] today, and making phone calls to sober houses. PLAN: 1. Continue monitoring the patient on unit for safety, suicidal ideation, AH, and mood. 2. Increase Prazosin to 3mg QHS for NMA. 3. Review [facility] records when in. 4. Continue Azithromycin 250mg as ordered for productive cough. 5. Per Dr. Barrett's endocrine progress note on 09/13/16: Continue Synthroid 125mcg daily for now. Repeat TSH, free T4, thyroid antibody panel on 09/14/16; recommend having thyroid US done as inpatient. Dr. Barrett to continue to follow. 6. Discontinue Risperdal 1mg QAM and 2mg QHS. Start Thorazine 25mg QAM and 50mg QHS for AH. Continue Cogentin 1mg BID. 7. Continue [place] carbonate 300mg BID. Li level scheduled on 09/15/16 at 0600. 8. Dispo planning per primary team. daily for now. Repeat TSH, free T4, thyroid antibody panel on 09/14/16; recommend having thyroid US done as inpatient. Dr. Barrett to continue to follow. 6. Discontinue Risperdal 1mg QAM and 2mg QHS. Start Thorazine 25mg QAM and 50mg QHS for AH. 7. Continue [place] carbonate 300mg BID. Li level scheduled on 09/15/16 at 0600. 8. Dispo planning per primary team.
--- NOTE | 2016-09-13 08:38 | PN- Endocrinology ---
Assessment/Plan Assessment: 25 Yo F with PMHx hypothyroidism, bipolar disorder, history of drug abuse presented with suicidal ideation. Patient was admitted in Inpatient Psychiatry for depression, suicidal ideation, auditory hallucinations. Blood work done on showed TSH 44.4, free T4 0.74 and TT3 1.13. She was supposed to be on Levothyroxine 125 mcg daily. However, she ran out of her thyroid medication about one week ago. In hospital, she was put on Levothyroxine 50 mcg daily initially. Patient received additional Levothyroxine 100 mcg in the afternoon on 09/12. Starting today, she will be on Levothyroxine 125 mcg daily. As per note of H+P, patient has been homeless prior to admission. Plan: 1. continue Levothyroxine 125 mcg daily for now; 2. repeat TSH, free T4 tomorrow to look for a trend. 3. check thyroid antibody panel; 4. recommend having thyroid u.s done as inpatient; will follow Subjective Subjective: She feels better this morning. Objective Last 24 Hrs of Vital Signs/I&O Vital Signs Date Time Temp Pulse Resp B/P Pulse O2 O2 Flow FiO2 Ox Delivery Rate 09/13 0741 97.8 98 150/90 09/12 2137 98.1 99 16 141/80 09/12 1940 98.1 99 141/80 09/12 1551 84 139/96 09/12 1222 88 127/92 09/12 1125 Room Air Physical Exam Neck: thyromegaly, ? palpable thyroid nodule in isthmus
[2016-09-13 12:25] VITALS: BP 141/69
--- NOTE | 2016-09-13 12:52 | NUR ---
PT IS OUT IN THE COMMUNITY INTERACTING AT TIMES WITH STAFF AND PEERS. PT KEEPS MOSTLY TO SELF AND TENDS TO ISOALTIE IN A GROUP SEETING. PT HAS SOME PEERS WHICH SHE WILL INTERACT WITH. PT IS ACTIVE IN GROUPS. PT MOOD IS STABLE WITH A CONSTRICTED AFFECT. PT HAS BEEN ON THE PHONE TRYING TO FIND PLACEMENT OPTIONS. PT DENIES SI THOUGHTS
--- NOTE | 2016-09-13 13:58 | SOCIAL WORKER PROG NOTE PSYCH ---
Social Work Progress Note Progress Note Met with pt, and reached out to her Father via telephone. Staying with her Father is not an option, pt became emotional with this news, but was able to focus on other opportunities for housing, she is aware of many programs in the [facility], and is motivated for treatment and stability. Pt encouraged to make phone calls to [address] and sober hsouies. Pt agrees.
[2016-09-13 16:06] VITALS: BP 142/79
--- NOTE | 2016-09-13 17:16 | ULTRASOUND REPORT ---
EXAMINATION: US THYROID CLINICAL INFORMATION: Hypothyroidism. COMPARISON: None TECHNIQUE: Linear and curved transducer grayscale and color Doppler examination with attention to the region of the thyroid. FINDINGS: SIZE: Measurements of the thyroid lobes and nodules are given in sagittal, anteroposterior and transverse dimensions respectively. Right Thyroid Lobe: 5.8 x 2.6 x 2.8 cm. Left Thyroid Lobe: 7.2 x 2.3 x 2.3 cm. Isthmus: 1.5 cm in maximum AP dimension. PARENCHYMA: The thyroid gland is diffusely heterogeneous and appears hypervascular on color Doppler images. RIGHT THYROID LOBE: No discrete nodules within the heterogeneous lobe. There are scattered, subcentimeter sized hyperechoic areas within the right lobe that have the appearance of pseudonodules. ISTHMUS: There is a 0.5 x 0.4 x 0.5 cm hyperechoic nodule (or pseudonodule) within the isthmus. LEFT THYROID LOBE: There is a 0.8 x 0.7 x 0.8 cm hyperechoic nodule (or pseudonodule) within the mid left lobe. NODES: No lymphadenopathy is seen in the tissue surrounding the thyroid gland. IMPRESSION: - Large, heterogeneous, hypervascular thyroid gland; findings are suggestive of thyroiditis. - Scattered, subcentimeter sized areas of increased echotexture within the gland likely represent pseudonodules. - No lymphadenopathy within the adjacent soft tissues of the neck.
[2016-09-13 20:06] VITALS: BP 139/86
--- NOTE | 2016-09-13 21:51 | NUR ---
Pt is out in the community affect is flat, interacts with her peers. Compliant and cooperative with the staff. c/o no pain vital signs are stable, appetite is good. Will continue to monitor the pt overnight.
--- NOTE | 2016-09-14 05:38 | NUR ---
PT TO HAVE LABS IN THE AM. SHE APPEARED TO SLEEP.
[2016-09-14 07:37] VITALS: BP 142/89
--- NOTE | 2016-09-14 08:02 | CP SOUTH PROGRESS NOTE PSYCH ---
See Addendum Psych (Inpt) Progress Note Progress Note Include the following elements, when applicable: Involvement in the active treatment of the patient with behavioral observations of the patient and the patient's response to the treatment. Review of the ongoing treatment process in the context of the treatment plan. Indication of how multi-disciplinary staff members are carrying out the treatment plan. Plans for future interventions and recommendations for revision of the treatment plan. Liaison with other physicians/providers. Progress Note: [I discussed this patient's progress to date, current mental status, treatment process in the context of the treatment plan, and discharge planning with staff/ team in the daily morning inpatient team meeting. I also met with the patient myself in individual session.] SUBJECTIVE: "I actually slept last night." OBJECTIVE: Current Medications Sig/Joe Start time Last Medication Dose Route Stop Time Status Admin Acetaminophen 650 MG Q4P PRN 09/12 0845 AC 09/12 PO 0845 Albuterol Sulfate 2 PUF Q4P PRN 09/12 1130 AC INH Azithromycin 250 MG DAILY 09/12 1000 AC 09/14 PO 09/15 1001 0757 Benztropine Mesylate 1 MG 0800,09/12 2200 AC 09/14 PO 0757 Chlorpromazine 25 MG 1300 09/14 1300 AC PO Chlorpromazine 25 MG 0800 09/14 0800 AC 09/14 PO 0758 Chlorpromazine 50 MG 09/13 2200 AC 09/13 PO 2119 Gabapentin 300 MG Q8 09/11 1400 AC 09/14 PO 0644 Levothyroxine Sodium 0.125 MG DAILY AC 09/13 0700 AC 09/14 PO 0644 [place] Carbonate 300 MG 09/12 1000 AC 09/14 PO 0757 [place] Carbonate 300 MG AT BEDTIME 09/11 2200 AC 09/13 PO 2117 Nicotine 21 MG DAILY 09/12 1000 AC 09/14 TOP 0758 Nicotine 2 MG Q2P PRN 09/11 1500 AC 09/13 PO 0846 Prazosin HCl 3 MG QPM 09/13 2200 AC 09/13 PO 211 Vital Signs Date Time Temp Pulse Resp B/P Pulse O2 O2 Flow FiO2 Ox Delivery Rate 09/14 736 97.0 87 142/89 09/139 92 139/86 09/13 2005 97.6 92 139/86 09/13 1606 88 142/79 09/13 1529 Room Air 09/13 1225 86 141/69 Lab Free T4 0.77 ng/dL L 09/14/16 0634 TSH 84.700 uIU/mL H 09/14/16 0634 Thyroglobulin Antibody > 500 U/mL H 09/14/16 0634 Thyroid Peroxidase Ab > 1300 U/mL H 09/14/16 0634 09/13/16 US - SOFT TISSUES OF HEAD AND NECK: IMPRESSION: - Large, heterogeneous, hypervascular thyroid gland; findings are suggestive of thyroiditis. - Scattered, subcentimeter sized areas of increased echotexture within the gland likely represent pseudonodules. - No lymphadenopathy within the adjacent soft tissues of the neck. ASSESSMENT: Chart, progress notes, labs, VS, US of soft tissues of head/neck, and medication list were reviewed. Dr. Barrett notifed by nursing today of low Free T4, and elevated TSH/thyroid antibody results. Dr. Barrett will continue to follow. Met with patient today. She presented A&Ox4. Speech was normal in rate tone and volume. Affect was mostly constricted. Mood was "anxious" . Demeanor was calm and polite. She easily engaged in conversation. She reported sleeping well last night since switch from Risperdal to Thorazine. She denied presence of NMA since increase in Prazosin to 3mg QHS. She reported her appetite was "ok." Patient reported calling all of the sober houses on resource list provided to her by Jessica Julio LCSW. She reported that 2 sober houses in [place], [place] may have openings next week. She reported speaking to her friend, Raúl, last evening who lives in [place], [place]. He told her that he may be able to pay for her to stay at a hotel until receiving a placement at a sober house/jail. This tech writer asked if primary team could speak to Raúl to confirm this plan. She reported that he works a full schedule as a mobile security architect and he may not be able to speak during his shift. This tech writer asked the patient if primary team could try to connect with him. She reported she would consider this. The patient reported depression today of 4-5/10 (10 being the worst) and anxiety of 8/10 (10 being the worst) secondary to intermittent vague AH of 5 voices. She reported AH of "chatter," reported she "can't really make out what they're (AH) saying." She denied voices were command in nature, and reported an absence of hearing the male voice who has told her in the past to kill herself. She denied visual hallucinations. Reported a reduction in AH since starting Thorazine last night. She denied active and passive suicidal ideation, plans and intent. She denied homicidal ideation. She appeared future oriented and has been focusing her energy on finding a jail/sober house placement. Thought process was linear and goal-directed. Thought content was appropriate. There was no evidence of paranoia or genevieve delusions. She denied paranoid thoughts. There was no evidence of overt internal stimulation on encounter. Cognition was grossly intact. Patient reported tolerating switch from Risperdal to Thorazine well and denied untoward medication effects. There was no evidence of signs/symptoms of movement disorder. AIMS= 0. Patient agreeable to continue taking medications. Reviewed with patient that if AH occurs throughout the day, Thorazine 25mg could be added in the afternoon. Patient will continue monitoring pattern/intensity of AH throughout the day. This tech writer will check in with patient mid-day, and evaluate need for addition of Thorazine 25mg in the afternoon. Patient agreeable to plan. Checked in with patient this afternoon. She reported continued AH. Will add Thorazine 25mg Q1PM. PLAN: 1. Continue monitoring patient on unit for safety, suicidal ideation, mood and AH. 2. Continue current medications. Add Thorazine 25mg Q1PM for AH. 3. Dr. Barrett from endocrinology will continue to follow patient for abnormal thyroid labs and US. 4. Dispo planning per primary team. evaluate need for addition of Thorazine 25mg in the afternoon. Patient agreeable to plan. Checked in with patient this afternoon. She reported continued AH. Will add Thorazine 25mg Q1PM. PLAN: 1. Continue monitoring patient on unit for safety, suicidal ideation, mood and AH. 2. Continue current medications. Add Thorazine 25mg Q1PM for AH. 3. Dr. Barrett from endocrinology will continue to follow patient for abnormal thyroid labs and US. 4. Dispo planning per primary team.
[2016-09-14 12:26] VITALS: BP 140/60
--- NOTE | 2016-09-14 12:46 | NUR ---
PT HAS BEEN IN HER ROOM A LOT TODAY. SHE DID COME TO PLANNING MEETING AND HER GOAL WAS TO TALK TO RESEARCH CENTER DIRECTOR AND ATTEND GROUPS. PT HAS NOT BEEN FEELING WELL SHE SHARED THAT HER HEAD WAS BOTHERING HER, AND EXPERIENCING THROAT IRRITATION. THIS MHW ADVISED HER TO TALK TO SHEET ROCK APPLICATOR ABOUT SEEING IF SHE CAN GET ANYTHING FOR HER SYMPTOMS. OTHERWISE, PT HAS BEEN COOPERATIVE, AND PLEASANT. WHEN ASKED PT DENIES THOUGHTS TO HURT HERSELF.
--- NOTE | 2016-09-14 13:51 | SOCIAL WORKER PROG NOTE PSYCH ---
Social Work Progress Note Progress Note Patient reports continued anxiety and depression today, specifically regarding her discharge plan from the hospital. Patient reports that yesterday she called every phone number on the list of Sober Houses I provided her on Monday. Patient reports that two of the programs state they take basic needs and reported 1-2 week bed wait and wanting her clinicial information faxed over. I faxed her clinical info today to both programs ([facility] and [facility]). Patient reports that she initially was upset over the phone conference with her father yesterday, but had time to process it and is now not that dissapointed/ surprised by his response. Patient reports a continued desire for sober living post hospitalization and appears motivated to take steps necessary to secure living. Patients insight and judgement appear to be improving and she appeared less sad today then yesterday. Patient reports continued passive SI with no specific plan at present. Patient has called [address] today as well and secured interview for half-way bed. Patient is also interested in [facility] and possibly waiting there until sober bed becomes available at either [facility] or [facility].
--- NOTE | 2016-09-14 13:54 | SOCIAL WORKER TX PLAN PSYCH ---
Treatment Plan - Please Document: - Evidence that there is ongoing collaboration between - the patient and the interdisciplinary team, - including the patient's active participation and - responsibility for engaging in the treatment regimen, - and that the treatment plan is individualized and - relevant to the patient's conditions. - Treatment plan should reflect documentation indicating - that all active therapeutic efforts are included. Strengths/Capabilities: resilient intelligent Physical Limitations (Interventions): none Patient Identified Trmt Goals: "I need to find a better environment to live." Discharge Plan: Sober house Problem/Goals #1 Problem #1: suicidal ideation Goal (Short Term): Today I will attend 2 groups Today I will identify 2 stressors Today I will identify 2 positive supports Today I will work on recognizing 3 emotions I am feeling Goal (Penitentiary): Be free of suicidal thoughts/attempts Develop 3 coping skills to deal with depression Identify 3 positive support systems to call in crisis Develop a crisis plan with 3 cantor people Identify 2 positive traits per week about myself Identify 2 things I have to look forward to Identify 2 positive people in my life and 1 thing I appreciate about them Interventions: Learn ways to manage depressive symptoms accordingly and identify positive supports to manage life stressors and mood fluctuations. Modalities: Encourage groups, education on depression, provide CBT treatment, family meeting. DSM5/PS Stressors/Medical Prob Diagnosis' (DSM 5, Stressors, Medical): Schizoaffective, bipolar F25.0 Cannabis use disorder, moderate F121.20 Current GAF: 25 Treatment Team - Responsibilities of members of the treatment team include: - Medication Management- MD or RACK WORKER - Medication Administration and Monitoring- Nurse - Group Therapy- Occupational Therapist - 1:1 Therapy,Disch Planning,family involvement-Weight Tester
[2016-09-14 15:59] VITALS: BP 139/75
--- NOTE | 2016-09-14 16:32 | PN- Endocrinology ---
Assessment/Plan Assessment: 25 Yo F with PMHx hypothyroidism, bipolar disorder, history of drug abuse presented with suicidal ideation. Patient was admitted in Inpatient Psychiatry for depression, suicidal ideation, auditory hallucinations. Blood work done on showed TSH 44.4, free T4 0.74 and TT3 1.13. She was supposed to be on Levothyroxine 125 mcg daily. However, she ran out of her thyroid medication about one week ago. In hospital, she was put on Levothyroxine 50 mcg daily initially. Patient received additional Levothyroxine 100 mcg in the afternoon on 09/12. She has been on Levothyroxine 125 mcg daily. On 09/14/2016, repeat TSH 84.7, free T4 0.77; anti TPO > 500 and anti TG> 1300. Thyroid u.s showed two small nodules--5 mm nodule in isthmus and 8 mm nodule in left thyroid lobe. Her thyroid gland is enlarged with right lobe 5.8x2.6x2.8 cm and left lobe 7.2x2.3x2.3 cm. Plan: 1. increase Levothyrxine to 175 mcg daily. 2. repeat TSH and free T4 in 2-3 days to look for a trend; 3. with regards to her small thyroid nodules, I will recommend having a repeat thyroid u.s done in 6-12 months. The above plan has been discussed with patient and the team in [facility]. Subjective Subjective: She has no special complaints. Objective Last 24 Hrs of Vital Signs/I&O Vital Signs Date Time Temp Pulse Resp B/P Pulse O2 O2 Flow FiO2 Ox Delivery Rate 09/14 1559 84 139/75 09/14 1226 92 140/60 09/14 0737 97.0 87 142/89 09/13 2119 92 139/86 09/13 2005 97.6 92 139/86 Results Pertinent Lab/Carroll Results: Laboratory Tests 09/14 0634 Chemistry TSH (0.270 - 4.200 uIU/mL) 84.700 H Free T4 (0.79 - 2.35 ng/dL) 0.77 L Immunology Thyroglobulin Antibody (< 61 U/mL) > 500 H Thyroid Peroxidase Ab (< 61 U/mL) > 1300 H
[2016-09-14 19:42] VITALS: BP 127/71
--- NOTE | 2016-09-14 21:31 | NUR ---
PT IS CALM, COOPERATIVE WITH STAFF AND PEERS, AND COMPLIANT WITH UNIT RULES. PT IS SLIGHTLY WITHDRAWN, APPEARING IN [place] OFTEN, THOUGH MOSTLY STAYING TO SELF. WILL HOLD CONMVERSATION WHEN DIRECTLY ENGAGED. PT MOOD IS STABLE, AFFECT IS EUTHYMIC, COMMUNICATION IS NORMAL THOUGH SPARSE, AND APPETITE IS NORMAL. PT DENIES SI AT THIS TIME.
--- NOTE | 2016-09-15 06:46 | NUR ---
PATIENT SLEPT ALL NIGHT
[2016-09-15 08:09] VITALS: BP 134/73
[2016-09-15 12:13] VITALS: BP 129/79
--- NOTE | 2016-09-15 12:48 | CP SOUTH PROGRESS NOTE PSYCH ---
Psych (Inpt) Progress Note Progress Note Include the following elements, when applicable: Involvement in the active treatment of the patient with behavioral observations of the patient and the patient's response to the treatment. Review of the ongoing treatment process in the context of the treatment plan. Indication of how multi-disciplinary staff members are carrying out the treatment plan. Plans for future interventions and recommendations for revision of the treatment plan. Liaison with other physicians/providers. Progress Note: [I discussed this patient's progress to date, current mental status, treatment process in the context of the treatment plan, and discharge planning with staff/ team in the daily morning inpatient team meeting. I also met with the patient myself in individual session.] SUBJECTIVE: "I'm pretty anxious." OBJECTIVE: Current Medications Sig/Joe Start time Last Medication Dose Route Stop Time Status Admin Acetaminophen 650 MG Q4P PRN 09/12 0845 AC 09/12 PO 0845 Albuterol Sulfate 2 PUF Q4P PRN 09/12 1130 AC INH Azithromycin 250 MG DAILY 09/12 1000 DC 09/15 PO 09/15 1001 0851 Benztropine Mesylate 1 MG 0800,09/12 2200 AC 09/15 PO 0850 Chlorpromazine 50 MG 1300 09/16 1300 AC PO Chlorpromazine 50 MG 0800 09/16 0800 AC PO Chlorpromazine 25 MG Q8P PRN 09/14 1600 AC 09/15 PO 1515 Chlorpromazine 25 MG 1300 09/14 1300 DC 09/15 PO 1243 Chlorpromazine 25 MG 0800 09/14 0800 DC 09/15 PO 0850 Chlorpromazine 50 MG 09/13 2200 AC 09/14 PO 2121 Gabapentin 300 MG Q8 09/11 1400 AC 09/15 PO 1243 Levothyroxine Sodium 0.175 MG DAILY AC 09/15 0700 AC 09/15 PO 0619 [place] Carbonate 600 MG AT BEDTIME 09/15 2200 AC PO [place] Carbonate 300 MG 0800 09/12 1000 AC 09/15 PO 0851 [place] Carbonate 300 MG AT BEDTIME 09/11 2200 DC 09/14 PO 2120 Nicotine 21 MG DAILY 09/12 1000 AC 09/15 TOP 0851 Nicotine 2 MG Q2P PRN 09/11 1500 AC 09/15 PO 1515 Prazosin HCl 3 MG QPM 09/13 2200 AC 09/14 PO 2120 Vital Signs Date Time Temp Pulse Resp B/P Pulse O2 O2 Flow FiO2 Ox Delivery Rate 09/15 1213 96 129/79 09/15 0809 97.3 90 134/73 09/14 2120 97.7 91 16 127/71 09/14 1942 97.7 91 127/71 09/14 1559 84 139/75 ASSESSMENT: Chart, progress notes, VS, labs and medications list were reviewed. Li = 0.3. Per Dr. Barrett's endocrine consult, repeat TSH and Free T4 will be ordered for tomorrow morning to check for trend. Met with patient today, together with Jessica Julio LCSW, and the patient's [facility] worker, Zoe. We reviewed the patient's treatment progress to date, medication regimen, level of safety, and discharge planning. Zoe and Jessica Julio LCSW, reviewed different housing options with the patient including shelters and sober living placements. Please refer to Jessica Julio LCSW's note for further details. On encounter today, the patient was A&Ox4. She presented calm and cooperative. Affect was constricted. Mood was "anxious." She reported most of her anxiety was surrounding the uncertainty of where she will be discharged to, however, she reported feeling supported by [facility] worker and comfortable being discharged with housing in the [facility] where her [facility] worker's office is located. She also reported anxiety surrounding AH, which remain present. She denied AH was command in nature but continues to endorse these throughout the day. Discussed option of increasing Thorazine to 50mg QAM and Q1PM. Patient was agreeable and reported tolerating medication well with no untoward effects. She reported sleeping well last night. She denied NMA. She denied homicidal ideation. Denied visual hallucinations. She denied active and passive suicidal ideation. She reported anxiety of 7/10 (10 being the worst) and depression of 6/ 10 (10 being the worst). She denied feeling hopeless, worthless and guilty. She reported feeling helpless over present uncertainty of her post-discharge housing situation. There was no evidence of paranoia or genevieve delusions. Thought process was linear and goal-directed. Thought content was appropriate. Cognition was grossly intact. Reviewed subtherapeutic Li level with patient. She was agreeable to increasing QPM dose for further mood stabilization. She denied untoward medication effects. Patient informed of schedule Li level on Monday morning at 0600 and rpt thyroid labs tomorrow morning. Patient agreeable and verbalized understanding. PLAN: 1. Continue monitoring the patient on unit for safety, suicidal ideation, mood and AH. 2. Increase [place] Carbonate from 300mg BID to 300mg QAM and 600mg QHS for mood stabilization. 3. Increase Thorazine from 25mg QAM and Q1PM to 50mg QAM and Q1PM to further target AH. Will continue Thorazine 50mg QHS for now. 4. Continue offering Thorazine 25mg Q8H prn for psychosis/agitation. 5. Continue thyroid management per Dr. Barrett's recommendations. 6. Dispo planning per primary team.
--- NOTE | 2016-09-15 12:58 | NUR ---
PT WAS NOT IN THE [place]IE[place] MUCH TODAY. HER GOAL WAS TO THINK POSITIVE. PT DOES NOT FEEL VERY WELL, AND HAS BEEN SUFFERING FROM A HEADACHE, AND THROAT IRRITATION. SHE HAS SOME INTERACTIONS WITH PEERS AND STAFF, BUT HAS NOT BEEN ATTENDING ANY GROUPS EXCEPT FOR PLANNING MEETING SO FAR. SHE HAS BEEN COOPERATIVE WITH STAFF DIRECTION, AND DENIES THOUGHTS OF HURTING SELF WHEN ASKED.
--- NOTE | 2016-09-15 15:20 | SOCIAL WORKER PROG NOTE PSYCH ---
Social Work Progress Note Progress Note Patient's [facility] worker, Zoe, came in today for a meeting to discuss patients discharge plan/ aftercare options. Patient expressed her desire to discharge to the [place] and seek a assisted environment in the [place] neighborhood. Patient has agreed to attend IOP at [facility] location and reports being familiar with their program from a previous treatment. Patient plans to call [address] the day she discharges the hospital and they will inform her where an immediate assisted bed is available for that night. Zoe plans to meet with patient once she arrives in [place] and together they will come up with more options to secure housing, employment, and finances. Patient reports that she does not feel safe discharging the hospital today and is still reporting depression and anxiety. Patient is aware that we are tentatively planning for Monday and she is in agreement with this plan.
[2016-09-15 16:11] VITALS: BP 135/74
[2016-09-15 19:44] VITALS: BP 140/88
--- NOTE | 2016-09-15 21:18 | NUR ---
PT IS CALM, COOPERATIVE WITH STAFF AND PEERS, AND COMPLIANT WITH UNIT RULES. PT IS IN [place], INTERACTING WELL WITH OTHERS. MOOD IS STABLE, AFFECT IS SLIGHTLY FLAT/CONSTRICTED, COMMUNICATION IS NORMAL, AND APPETITE IS NORMAL. PT DENIES SI AT THIS TIME.
[2016-09-16 07:47] VITALS: BP 142/90
--- NOTE | 2016-09-16 08:30 | CP SOUTH PROGRESS NOTE PSYCH ---
See Addendum Psych (Inpt) Progress Note Progress Note Include the following elements, when applicable: Involvement in the active treatment of the patient with behavioral observations of the patient and the patient's response to the treatment. Review of the ongoing treatment process in the context of the treatment plan. Indication of how multi-disciplinary staff members are carrying out the treatment plan. Plans for future interventions and recommendations for revision of the treatment plan. Liaison with other physicians/providers. Progress Note: [I discussed this patient's progress to date, current mental status, treatment process in the context of the treatment plan, and discharge planning with staff/ team in the daily morning inpatient team meeting. I also met with the patient myself in individual session.] SUBJECTIVE: "I didn't sleep last night." OBJECTIVE: Current Medications Sig/Joe Start time Last Medication Dose Route Stop Time Status Admin Acetaminophen 650 MG Q4P PRN 09/12 0845 AC 09/16 PO 0639 Albuterol Sulfate 2 PUF Q4P PRN 09/12 1130 AC INH Azithromycin 250 MG DAILY 09/12 1000 DC 09/15 PO 09/15 1001 0851 Benztropine Mesylate 1 MG 0800,09/12 2200 AC 09/15 PO 2145 Chlorpromazine 50 MG 1300 09/16 1300 AC PO Chlorpromazine 50 MG 0800 09/16 0800 AC PO Chlorpromazine 25 MG Q8P PRN 09/14 1600 AC 09/15 PO 1515 Chlorpromazine 25 MG 1300 09/14 1300 DC 09/15 PO 1243 Chlorpromazine 25 MG 0800 09/14 0800 DC 09/15 PO 0850 Chlorpromazine 50 MG 09/13 2200 AC 09/15 PO 2146 Gabapentin 300 MG Q8 09/11 1400 AC 09/16 PO 0639 Guaifenesin 10 ML Q6P PRN 09/15 1530 AC 09/16 PO 0639 Levothyroxine Sodium 0.175 MG DAILY AC 09/15 0700 AC 09/16 PO 0639 Mantee Carbonate 600 MG AT BEDTIME 09/15 2200 AC 09/15 PO 2143 Mantee Carbonate 300 MG 0800 09/12 1000 AC 09/15 PO 0851 Mantee Carbonate 300 MG AT BEDTIME 09/11 2200 DC 09/14 PO 2120 Nicotine 21 MG DAILY 09/12 1000 AC 09/15 TOP 0851 Nicotine 2 MG Q2P PRN 09/11 1500 AC 09/15 PO 1515 Prazosin HCl 3 MG QPM 09/13 2200 AC 09/15 PO 2144 Sodium Chloride 2 SPRAY Q4P PRN 09/16 0830 UNVr ROQUE Vital Signs Date Time Temp Pulse Resp B/P Pulse O2 O2 Flow FiO2 Ox Delivery Rate 09/16 0747 96.4 99 142/90 09/15 2144 97.3 91 16 140/88 09/15 1944 97.3 91 140/88 09/15 1611 97 135/74 09/15 1213 96 129/79 Lab Free T4 0.77 ng/dL L 09/14/16 06 Free T4 0.86 ng/dL 09/16/16 06 TSH 84.700 uIU/mL H 09/14/16 06 TSH 62.100 uIU/mL H 09/16/16 06 ASSESSMENT: Chart, progress notes, VS, labs and medication list were reviewed. Rpt Free T4 normalized, and TSH trending down however remains elevated at 62.100. Methods Study Analyst Dr. Barrett to follow. Met with patient today. She presented A&Ox4. Speech was normal in rate, tone and volume. Affect remained constricted. Eye contact was good. She reported her mood as "tired." Reported sleeping poorly last night secondary to "my mind wouldn't shut off." Reported falling asleep at approx. 1AM this morning. She denied NMA. Patient reported preoccupation with disposition plan post-discharge and hesistance to follow up with an emergency discharge on Monday. She reported speaking to a patient on unit who she made friends with and temporarily was invited to stay at this patient's home post-discharge while awaiting a intermediate placement. This underwriter mortgage loan reviewed with patient that this deviated from the plan that was discussed with her [facility] worker, Zoe, yesterday; and that returning to the home of another patient would not be recommended by her primary team due to safety reasons and the patient's sobriety. The patient reported depression of 4/10 (10 being the worst) and anxiety of 8/10 (10 being the worst) secondary to uncertainty of where she will be discharged to. She denied present AH. Continued to report racing thoughts, and will start increased Thorazine 50mg QAM and Q1PM today. She denied feeling worthless or guilty. She reported some feelings of hopelessness and helplessness. She denied active and passive suicidal ideation, plans and intent. She denied homicidal ideation. She denied visual hallucinations. Thought process was linear. Thought content was preoccupied. Cognition was grossly intact. Patient continued to report tolerating medications well and denied untoward medication effects. Received some cough relief from prn robitussin. Will start patient on prn normal saline nasal spray for congestion. PLAN: 1. Continue monitoring the patient on unit for safety, suicidal ideation, mood and AH. 2. Continue current medications. Consider readjusting Thorazine to 50mg QAM and 100mg QHS, if experiencing mid-day tiredness on Thorazine 50mg TID. 3. Start nasal spray Q4H prn for nasal congestion. 4. Endocrine to follow for further thyroid management. 5. Dispo planning per primary team. 6. Discharge likely on Monday with f/u to [facility]. Patient was strongly advised by primary team to f/u with emergency intermediate for housing.
--- NOTE | 2016-09-16 11:45 | SOCIAL WORKER PROG NOTE PSYCH ---
See Addendum Social Work Progress Note Progress Note Patient reports that last evening she had a difficult time falling asleep due to racing thoughts that lasted about 30 minutes. Patient reports that once she fell asleep she was able to sleep throughout the remainder of the night. Patient shared that she has befriended another patient on the unit and they have discussed/planned for patient to stay with her temporarily while waiting to secure bed after interview on 09/22. Patient was advised by this policy writer typist and Marci Geronimo APRN that we do not support or condone this plan and feel that calling [facility] for emergency jail bed would be better discharge plan as we had originally planned. Patient called her [facility] worker, Zoe, and informed her of this plan. She agreed with both myself and Marci that this does not sound like a safe discharge plan and she does not advise it as well, but at the same time will continue to support patient and provide her services. Patient is aware of all of our concerns but appears to have made her mind up about her discharge plan. Patient states that she still plans to attend [facility] and is contacting [facility] today to see if she can arrange for transporation from the temporary house to [place]. Patient plans to discharge on Monday and has been encouraged to rethink this plan over the weekend.
[2016-09-16 12:27] VITALS: BP 126/71
--- NOTE | 2016-09-16 14:09 | NUR ---
PT IS VERY EUTHYMIC AND DEPRESSED IN MOOD. PT IS VISIBLE WITHIN THE COMMUNITY WITH MINIMAL TO NO INTERACTIONS WITH PEERS/STAFF. ATTENDING GROUPS AND TRYING TO "REMAIN POSITIVE". PT SPOKE WITH SW AND DIRECTOR OF A SOBER HOUSE TO FIND OUT ABOUT POTENTIAL BED OPENINGS. VS ARE STABLE AND PT DENIES ANY SI/HI TO THIS MHW.
[2016-09-16 16:14] VITALS: BP 142/77
[2016-09-16 19:33] VITALS: BP 131/76
--- NOTE | 2016-09-16 21:26 | NUR ---
PT IS CALM, COOPERATIVE WITH STAFF AND PEERS, AND COMPLIANT WITH UNIT RULES. PT IS IN [place]IE[place], INTERACTING WELL WITH OTHERS. MOOD IS STABLE, AFFECT IS SLIGHTLY FLAT/CONSTRICTED, COMMUNICATION IS NORMAL, APPETITE IS NORMAL. PT DENIES SI AT THIS TIME.
[2016-09-17 08:15] VITALS: BP 120/93
[2016-09-17 12:15] VITALS: BP 121/76
--- NOTE | 2016-09-17 12:46 | NUR ---
Dr. Barrett on unit at this time following/addressing pt's POC re: thyroid function, per MD pt is doing well. No further orders at this time and Dr. Barrett wrote a couple scripts and they are placed in her chart behind "d/c" tab along with her W-10.
--- NOTE | 2016-09-17 12:53 | PN- Endocrinology ---
Assessment/Plan Assessment: 25 Yo F with PMHx hypothyroidism, bipolar disorder, history of drug abuse presented with suicidal ideation. Patient was admitted in Inpatient Psychiatry for depression, suicidal ideation, auditory hallucinations. Blood work done on showed TSH 44.4, free T4 0.74 and TT3 1.13. She was supposed to be on Levothyroxine 125 mcg daily. However, she ran out of her thyroid medication about one week ago. In hospital, she was put on Levothyroxine 50 mcg daily initially. Patient received additional Levothyroxine 100 mcg in the afternoon on 09/12. She has been on Levothyroxine 125 mcg daily. On 09/14/2016, repeat TSH 84.7, free T4 0.77; anti TPO > 500 and anti TG> 1300. Thyroid u.s showed two small nodules--5 mm nodule in isthmus and 8 mm nodule in left thyroid lobe. Her thyroid gland is enlarged with right lobe 5.8x2.6x2.8 cm and left lobe 7.2x2.3x2.3 cm. Levothyroxine was increased to 175 mcg daily. On 09/16/2016, repeat TSH 62.1 and free T4 0.86. Most likely she will be discharged on 09/19/2016. Plan: 1, continue Levothyroxine 175 mcg daily for now; Rx is done. 2. repeat TSH, free T4 in 2-3 weeks; lab slip is done. 3. f/u in office after discharge; 4. repeat thyroid u.s in 6 months to monitor the size of her thyroid nodules. Subjective Subjective: she feels well. Most likely she will be discharged on 09/19/2016. Objective Last 24 Hrs of Vital Signs/I&O Vital Signs Date Time Temp Pulse Resp B/P Pulse O2 O2 Flow FiO2 Ox Delivery Rate 09/17 1215 86 121/76 /04 0815 97.2 95 120/93 09/16 2100 80 131/76 09/16 1933 98.0 80 131/76 09/16 1614 87 142/77 Results Pertinent Lab/[place] Results: Laboratory Tests 09/16 0637 Chemistry TSH (0.270 - 4.200 uIU/mL) 62.100 H Free T4 (0.79 - 2.35 ng/dL) 0.86
--- NOTE | 2016-09-17 14:45 | NUR ---
PT IS OUT IN COMMUNITY INTERACTING WELL WITH STAFF AND PEERS. PT IS ACTIVE IN GROUPS. PT CAN BE A LITTLE WITHDRAWN AT TIMES FROM STAFF AND PEERS. PT MOOD IS STABLE WITH A FLAT AFFECT. PT IS COMPLIANT WITH UNIT RULES. PT DENIES SI THOGUHTS.
--- NOTE | 2016-09-17 15:55 | CP SOUTH PROGRESS NOTE PSYCH ---
Psych (Inpt) Progress Note Progress Note Thee patient was seen for f/u for Schizoaffective disorder, MRE mmixed, svere, with SI. We reviewed the medical records and assessed progress to date. The patient has been keeping to herself stating that "there are too many people out there for me". When asked how many people around me I tends to cheer a lot of places and they're aggravating so I tends to be isolating. The patient is leery about her discharge plan to go to continue, stating that she had a bad experience when she was there before and that would be a trigger for her. The patient is denying suicidal/homicidal ideation, auditory/visual hallucinations or side effects from the medications. She stated that her medications are helpful citing Thorazine as being helpful with voices and lithium with stabilization and depression. Patient expresses that she has nightmares of traumatic event in December despite the presence and she takes. She continues to worry about her physical conditions and expresses the wish to follow up and maintain clean and sober. For congestion only added Mucinex to her medication regimen. We will continue other medications noted. She understands the risks/benefits/ side effects of it and is agreeable to take it as prescribed. Continue with anticipated discharge planning on Monday she plans on telling the treatment team that she wants to go to a friend and not continue.
[2016-09-17 16:02] VITALS: BP 130/64
[2016-09-17 19:08] VITALS: BP 140/79
--- NOTE | 2016-09-17 20:52 | NUR ---
PT IS STABLE WITH FULL RANGE OF AFFECT. PRESENT WITHIN THE COMMUNITY AND INTERACTING WITH PEERS/STAFF. PT HAS BEEN PLAYING BOARD GAMES AND CARDS WITH PEERS ALL EVENING SHIFT. PT APPEARS TO BE LAUGHING AND ENJOYING HERSELF. VS ARE STABLE AND DENIES ANY SI/HI TO THIS MHW.
--- NOTE | 2016-09-18 06:18 | NUR ---
PT SLEPT WELL. LABWORK DONE IN THE AM.
[2016-09-18 07:42] VITALS: BP 142/87
[2016-09-18 12:17] VITALS: BP 141/81
--- NOTE | 2016-09-18 14:24 | NUR ---
PT VISIBLE FOR SOME OF THE DAY IN THE MILIEU. PT HAS COMPLAINED OF A HEADACHE, AND SINUS PAIN THIS MORNING IN PLANNING MEETING. SHE HAS BEEN LAYING DOWN A LOT AND SOCIALIZING WITH SELECT PEERS, PRIMARILY HER ROOMMATE. PT HAS BEEN COOPERATIVE, AND PLANS TO BE DISCHARGED TOMORROW. PT DENIES HAVING THOUGHTS TO HURT HERSELF WHEN ASKED.
[2016-09-18 16:05] VITALS: BP 119/72
[2016-09-18 19:30] VITALS: BP 120/82
--- NOTE | 2016-09-18 20:08 | CP SOUTH PROGRESS NOTE PSYCH ---
Psych (Inpt) Progress Note Progress Note The patient was seen for follow-up for schizoaffective disorder, most recent episode mixed, currently in remission. The patient was discussed with unit staff and seen individually. According to the nursing staff she has been sleeping and eating well, keeping mostly to herself but when interacting with others being appropriate. The patient's lithium level resulted today and is within therapeutic range. The patient denies suicidal/homicidal ideation, auditory/visual hallucinations, or side effects from the medications. The patient understands the risks/benefits/side effects of the medication and is agreeable to continue taking them. The patient continues to state that she will not go to "[place]" and that she has arranged to go to a friend's house. She was advised to discuss with the treatment team tomorrow. The patient feels ready ready to discharge tomorrow, nevertheless not following the indicated plan. We will continue present management, observation, symptom monitoring, and discharge planning. The patient will be followed up daily by the unit psychiatrist. Lab [place] 0.5 mmol/L L 09/18/16 0603
--- NOTE | 2016-09-18 21:29 | NUR ---
PT IS STABLE WITH FULL RANGE OF AFFECT. VISIBLE WITHIN THE COMMUNITY AND INTERACTING WITH PEERS THIS EVENING SHIFT. PT IS ATTENDING GROUPS AND REPORTED THAT SHE IS BEING DC TOMORROW TO A SOBER HOUSE AND WILL MAKE AN ATTEMPT TO START FOLLOW UP CARE ONCE SHE IS SETTLED WITH HER LIVING SITUATION. DENIES ANY SI/HI TO THIS MHW AND VS ARE STABLE.
--- NOTE | 2016-09-19 05:47 | NUR ---
PATIENT SLEPT ALL NIGHT.
[2016-09-19 07:33] VITALS: BP 121/69
--- NOTE | 2016-09-19 08:34 | NUR ---
Will be discharged today to [facility], possibly a sober house or friends and follow up at [facility] [place]. Mood is stable, full range of affect denied thoughts of self harm when asked. Given education on suicide prevention and bipolar d/o.
[2016-09-19] MEDS ORDERED: NICOTINE PATCH1 EAC3 TOP (08:38)
[2016-09-19] MEDS ORDERED: MINIPRESS1 MG PO (08:38)
[2016-09-19] MEDS ORDERED: CHLORPROMAZINE50 M2 PO (08:38)
[2016-09-19] MEDS ORDERED: GABAPENTIN300 M2 PO (08:38)
[2016-09-19] MEDS ORDERED: LITHIUM CARBON300 M4 PO (08:38)
[2016-09-19] MEDS ORDERED: GUAIFENESIN ER600 MG PO (08:38)
[2016-09-19] MEDS ORDERED: BENZTROPINE MESY1 M1 PO (08:38)
--- NOTE | 2016-09-19 08:44 | DISCHARGE SUMMARY REPORT-PSYCH ---
Visit Information Visit Dates/Diagnosis' Admission Date: 09/11/16 Discharge Date: 09/19/16 Reason for Admission: Suicidal ideation and auditory hallucinations. Psy Discharge Primary Diag: Schizoaffective Disorder Psy Discharge Secondary Diag: PTSD; Opiate use disorder in full sustained remission past 8 months; Cannabis use disorder, moderate; hypothyroidism. Hospital Course Significant Lab Findings: Lab Free T4 0.77 ng/dL L 09/14/16 0634 Free T4 0.86 ng/dL 09/16/16 0637 TSH 84.700 uIU/mL H 09/14/16 0634 TSH 62.100 uIU/mL H 09/16/16 0637 TSH &T3 &Free T4 Intrp 44.400 uIU/mL H 09/11/16 0531 Thyroglobulin Antibody > 500 U/mL H 09/14/16 0634 Thyroid Peroxidase Ab > 1300 U/mL H 09/14/16 0634 HIV 1&2 Ab Western Blot NONREACTIVE 09/11/16 2306 Beebe 0.5 mmol/L L 09/18/16 0625 Urine Cannabis Screen > 80.00 NG/ML H 09/11/16 0727 09/12/16 EKG: Sinus rhythm with rate of 82. Borderline T wave abnormalities. IL: 144; QRSD: 108; QT: 376; QTc: 439; P: 65; QRS: 15. T: 39. Borderline EKG confirmed by company tanker truck driver Dr. Ryan Campos. 09/13/16 US-SOFT TISSUES OF HEAD & NECK: FINDINGS: SIZE: Measurements of the thyroid lobes and nodules are given in sagittal, anteroposterior and transverse dimensions respectively. Right Thyroid Lobe: 5.8 x 2.6 x 2.8 cm. Left Thyroid Lobe: 7.2 x 2.3 x 2.3 cm. Isthmus: 1.5 cm in maximum AP dimension. PARENCHYMA: The thyroid gland is diffusely heterogeneous and appears hypervascular on color Doppler images. RIGHT THYROID LOBE: No discrete nodules within the heterogeneous lobe. There are scattered, subcentimeter sized hyperechoic areas within the right lobe that have the appearance of pseudonodules. ISTHMUS: There is a 0.5 x 0.4 x 0.5 cm hyperechoic nodule (or pseudonodule) within the isthmus. LEFT THYROID LOBE: There is a 0.8 x 0.7 x 0.8 cm hyperechoic nodule (or pseudonodule) within the mid left lobe. NODES: No lymphadenopathy is seen in the tissue surrounding the thyroid gland. IMPRESSION: - Large, heterogeneous, hypervascular thyroid gland; findings are suggestive of thyroiditis. - Scattered, subcentimeter sized areas of increased echotexture within the gland likely represent pseudonodules. - No lymphadenopathy within the adjacent soft tissues of the neck. Course Complications: None. Consultations: The patient was seen for admission history and physical by Dr. Lianne Norman. Please see MD note for additional information. The patient was additionally consulted by armature winder repair Dr. Dominique Barrett for abnormal TFTs. Repeat TFTs and thyroid antibodies were checked, and a thyroid ultrasound was completed. The patient's Synthroid was adjusted from 125mcg daily to 175mcg daily for hypothyroidism. The patient was scheduled an outpatient endocrinology appointment with Dr. Dominique Barrett per her recommendation for further thyroid management. Please see thyroid ultrasound results and TFTs above. Allergies: Coded Allergies: No Known Allergies (09/11/16) Hospital Course/TX Response: The patient was monitored on the unit for safety, suicidal ideation, mood and auditory hallucinations. She participated in multimodal treatments on the unit. She was initially started on Risperdal 0.5mg every morning and 1.5mg at bedtime for auditory hallucinations which was increased to 1mg every morning and 2mg at bedtime. Cogentin 1mg twice daily was added for EPS prevention. The patient did not respond to increased Risperdal and elected to switch from Risperdal to Thorazine given past positive efficacy targeting auditory hallucinations. The patient was started on Thorazine 25mg every morning and 50mg at bedtime for auditory hallucinations. Thorazine was increased to 50mg every morning and 100mg at bedtime with good effect. Cogentin 1mg twice daily was continued. Beebe 300mg was started twice daily for mood stabilization and was increased to 300mg every morning and 600mg at bedtime. Patient was restarted on home medication of Prazosin 1mg at bedtime for nightmares which was gradually increased to 3mg at bedtime with good effect. Home medication of Gabapentin 300mg three times daily was also restarted for anxiety. Synthroid 125mcg every morning was increased to 175mcg every morning for hypothyroidism per Dr. Barrett recommendation. The patient tolerated all medications well and denied untoward medication effects. During the hospital course, the patient's mood and affect improved. Suicidal ideation, auditory hallucinations and nightmares remitted. A phone conference was held with the patient, the patient's father, Divine ROBERT Walter, and this senior technical writer. The patient's treatment progress, medication regimen, level of safety and discharge planning were reviewed. One of the patient's main barriers during this hospital course was homelessness. The patient's father refused to have the patient return into his care and did not want to be involved in her inpatient treatment. The patient was agreeable to call 211 for an usp placement and intake. The patient received a usp intake at [facility] in [place] on 09/22/16. The patient was also secured a temporary housing placement at [facility] in [place], [place]. However, the patient refused this recommended placement in addition to calling 211 for an emergency shleter placement. She chose to reside with another CPS female patient post- discharge from hospital despite this not being recommended by CPS treatment team. CPS treatment team reviewed the risks of this plan including the patient's safety and risk of relapse. The patient verbalized understanding but remained adament about returning to the home of this female CPS patient. A second phone conference was held with the patient, her [facility] worker, Zoe, Jessica Julio LCSW, and this senior technical writer. The patient's discharge plan was reviewed with [facility] workerZoe, who also was in agreement with the CPS treatment team's recommendations. [facility] workerZoe, however reported that she would resume services with the patient and continue to support her treatment despite her location of residence. The patient was agreeable to follow-up for Dual Dx IOP treatment at [facility] in [place], [place]. The patient and her [facility] workerZoe, were in favor of discharge plan. On the date of discharge, 09/19/16, the patient presented alert and oriented to person, place, time and situation. Speech was normal in rate, tone and volume. Eye contact was appropriate. She had no complaints. She reported her mood was "really good, the voices are gone and I'm sleeping." Affect was torres in range. She reported anxiety of 4/10 (10 being the worst) and depression of 2/10 (10 being the worst). She denied feeling hopeless, helpless, worthless and guilty. She denied active and passive suicidal ideation, plans and intent. She denied homicidal ideation. She stated and also believed she will not harm herself or others. She identified protective factors of her ABH worker "Zoe" and "my sobriety." She denied auditory and visual hallucinations. Thought process was linear and goal-directed. Thought content was appropriate. There was no evidence of paranoia or genevieve delusions. She reported her sleep and appetite were good. She reported resolution of nightmares. She expressed motivation to follow-up at [facility] tomorrow for IOP intake and continue dual diagnosis treatment there. She also expressed motivation to maintain sobriety. She was strongly advised to abstain from all substances, and to attend daily AA/NA meetings, and obtain a sponsor for continued support in sobriety. She refused [facility] in [place], [place] and reported that she would stay with a female patient from [facility] post-discharge. This plan was strongly discouraged by [facility] treatment team. Patient's ABH worker, Zoe, was informed of this plan. Patient was advised to call 211 for placement at an emergency usp instead of returning to the home of female CPS patient. The patient however refused this option. The patient reported tolerating all medicatins well and denied untoward medication effects. The patient reported feeling safe and ready for discharge. Discharge HBIPS - Tobacco Use Treatment Offered Post DC Medications Offered: Script Given-See Med List Post DC Tobacco Treatment Plan: Refused Tobcco Tx Pgm - EtOH/Drug Use D/O Treatment Offered Post DC Medications Offered: Med Not Indicated for D/O Post DC EtOH/SubAbuse TX Plan: Other SubAbuse/Dual Pgm Program Appt Date: 09/20/16 Metabolic Screening - Screen if on a Neuroleptic Medication - Metabolic screening should include: - Blood Pressure, BMI, Glucose or Hgb A1c, & a - Lipid profile from within the past 365 days. Metabolic Screening () Not Applicable, patient not on a neuroleptic. OR ([X]) Patient on a neuroleptic(s) . Enter below results for Glucose or Hemoglobin A1C, and lipid panel if obtained during the last 365 days. BMI: Blood Pressure: 121/69 Laboratory Results (If applicable): Lab Cholesterol 182 MG/DL 09/12/16 0630 Cholesterol/HDL Ratio 4 % 09/12/16629 HDL Cholesterol 42 mg/dL 09/12/16629 Hemoglobin A1c 5.3 % 09/12/16629 LDL Cholesterol, Calc 120 mg/dL 09/12/16629 Triglycerides 100 mg/dL 09/12/16629 Discharge Instructions General Discharge Information Discharge Medications: Discharge Medications- (Dose, route, freq, indication): START taking these NEW Home Medications: Nicotine (Nicotine Dose: On the skin, DAILY for Qty: 14 Printed Patch) 21 MG/24 HOUR 21 Milligram nicotine cessation Refills: 0 PATCH.TD24 Apply 1 patch topically every morning and remove before bedtime. Last Taken:09/19/16 Time:0830 Prazosin Dose: ORAL, Every night for Qty: 42 Printed Hydrochloride 3 Milligram nightmares Refills: 0 (Minipress) 1 MG Take 3 capsules (3mg) by CAPSULE mouth at bedtime. Last Taken:09/18/16 Time:2114 Gabapentin Dose: ORAL, EVERY 8 HOURS for Qty: 42 Printed (Gabapentin) 300 MG 300 Milligram anxiety Refills: 0 CAPSULE Take 1 capsule by mouth every eight hours. Last Taken:09/19/16 Time:45 Beebe Carbonate Dose: ORAL, SEE INSTRUCTIONS Qty: 42 Printed (Beebe Carbonate) 900 Milligram for mood stabilization Refills: 0 300 MG CAPSULE Take 1 capsule (300mg) by mouth every morning and 2 capsules (600mg) at bedtime. Last Taken:09/19/16 Time:0830 Benztropine Mesylate Dose: ORAL, 0800,2200 for Qty: 28 Printed (Benztropine 1 Milligram prevent EPS Refills: 0 Mesylate) 1 MG Take 1 tablet by mouth TABLET twice daily. Last Taken:09/19/16 Time:0830 Guaifenesin Dose: ORAL, EVERY 12 HOURS for Qty: 28 Printed (Guaifenesin ER) 600 600 Milligram congestion Refills: 0 MG TAB.ER.12H Take 1 tablet by mouth every 12 hours. Last Taken:09/19/16 Time:0830 Chlorpromazine HCl Dose: ORAL, SEE INSTRUCTIONS Qty: 42 Printed (Chlorpromazine HCl) 150 Milligram for clear thoughts Refills: 0 50 MG TABLET Take 1 tablet (50mg) by mouth every morning and 2 tablets (100mg) at bedtime. Last Taken:09/19/16 Time:0830 CONTINUE taking these Home Medications: Levothyroxine Sodium Dose: ORAL, DAILY BEFORE (Synthroid) 175 MCG 175 Microgram BREAKFAST for TABLET hypothyroidism Last Taken:09/19/16 Time:0645 STOP taking these DISCONTINUED Home Medications: Buspirone HCl (Buspirone HCl) Dose: ORAL, TWICE DAILY for ANXIETY 15 MG TABLET 1 Tablet Reason Stopped: Med no longer needed Quetiapine Fumarate Dose: ORAL, Every night for BIPOLAR (Quetiapine Fumarate) 50 MG 1 Tablet Reason Stopped: Per Doctor TABLET Decision Multiple Neuroleptics: ([X]) Not Applicable OR Document below three failed attempts at monotherapy, or a plan to taper to monotherapy, or augmentation of Clozapine. () Patient's Diet: Regular. Patient's Activity: No restrictions. DC Disposition: Patient refused [facility] in [place], [place] and an emergency usp placement. The patient to return to friend's home despite this being discouraged by CPS treatment team. Patient to attend usp intake at [facility] in [place], [place] on 09/22/16 to seek a more perminent housing placement. Recommendations: The patient was advised to please take her medications as prescribed. She was advised to abstain from all substances, attend AA/NA meetings and to obtain a sponsor for continued support in sobriety. She was advised to follow-up with scheduled outpatient appointments (see below in referral section). She was advised to attend scheduled usp intake at [facility] in [place], [place] on 09/22/16. She was advised to call 911/go to nearest emergency department in the event of an emergency. The patient verbalized understanding of all instructions. Referred To: [facility]ensive [facility] [address] [place], [place] (t)[phone] *IOP intake appointment scheduled on 09/20/16 at 9AM. Dominique Barrett MD [address] [place] [id number] *Appointment scheduled with armature winder repair Dr. Dominique Barrett on 12/30/16 at [address] Per Dr. Barrett's medical office supervisor, Dr. Barrett will be in touch with patient if a sooner appointment is required. [place] [address] [facility] [address] (t)[phone] * Halfway intake scheduled on 09/22/16. Copies To: [facility]; EHSAN SEGUNDO,DOMINIQUE
--- NOTE | 2016-09-19 08:57 | CP SOUTH PROGRESS NOTE PSYCH ---
Psych (Inpt) Progress Note Progress Note Include the following elements, when applicable: Involvement in the active treatment of the patient with behavioral observations of the patient and the patient's response to the treatment. Review of the ongoing treatment process in the context of the treatment plan. Indication of how multi-disciplinary staff members are carrying out the treatment plan. Plans for future interventions and recommendations for revision of the treatment plan. Liaison with other physicians/providers. Progress Note: [I discussed this patient's progress to date, current mental status, treatment process in the context of the treatment plan, and discharge planning with staff/ team in the daily morning inpatient team meeting. I also met with the patient myself in individual session.] SUBJECTIVE: "I feel really good." OBJECTIVE: Current Medications Sig/Joe Start time Last Medication Dose Route Stop Time Status Admin Acetaminophen 650 MG .STK-MED ONE 09/19 1951 DC PO 09/18 1952 Acetaminophen 650 MG Q4P PRN 09/12 0845 AC 09/18 PO 1957 Albuterol Sulfate 2 PUF Q4P PRN 09/12 1130 AC INH Benztropine Mesylate 1 MG 08,09/12 2200 AC 09/19 PO 0841 Chlorpromazine 100 MG 09/17 2200 AC 09/18 PO 211 Chlorpromazine 50 MG 09/16 0800 AC 09/19 PO 0842 Chlorpromazine 25 MG Q8P PRN 09/14 1600 AC 09/18 PO 195 Gabapentin 300 MG Q8 09/11 1400 AC 09/19 PO 0648 Guaifenesin 600 MG Q12 09/17 1552 AC 09/19 PO 0841 Guaifenesin 10 ML Q6P PRN 09/15 1530 AC 09/16 PO 0639 Levothyroxine Sodium 0.175 MG DAILY AC 09/15 0700 AC 09/19 PO 0648 [employer] Carbonate 600 MG AT BEDTIME 09/15 2200 AC 09/18 PO 2118 [employer] Carbonate 300 MG 0809/12 1000 AC 09/19 PO 0841 Nicotine 21 MG DAILY 09/12 1000 AC 09/19 TOP 0840 Nicotine 2 MG Q2P PRN 09/11 1500 AC 09/17 PO 1338 Prazosin HCl 3 MG QPM 09/13 2200 AC 09/18 PO 2119 Sodium Chloride 2 SPRAY Q4P PRN 09/16 0830 AC ROQUE Vital Signs Date Time Temp Pulse Resp B/P Pulse O2 O2 Flow FiO2 Ox Delivery Rate 09/19 0733 97.6 88 121/69 09/18 2119 120/82 09/18 1930 98.5 82 120/82 09/18 1605 87 119/72 09/18 1217 98 141/81 ASSESSMENT: Met with the patient today on the date of discharge. She presented alert and oriented to person, place, time and situation. Speech was normal in rate, tone and volume. Eye contact was appropriate. She had no complaints. She reported her mood was "really good, the voices are gone and I'm sleeping." Affect was torres in range. She reported anxiety of 4/10 (10 being the worst) and depression of 2/ 10 (10 being the worst). She denied feeling hopeless, helpless, worthless and guilty. She denied active and passive suicidal ideation, plans and intent. She denied homicidal ideation. She stated and also believed she will not harm herself or others. She identified protective factors of her ABH worker "Zoe" and "my sobriety." She denied auditory and visual hallucinations. Thought process was linear and goal-directed. Thought content was appropriate. There was no evidence of paranoia or genevieve delusions. She reported her sleep and appetite were good. She reported resolution of nightmares. She expressed motivation to follow-up at [facility] tomorrow for IOP intake and continue dual diagnosis treatment there. She also expressed motivation to maintain sobriety. She was strongly advised to abstain from all substances, and to attend daily AA/NA meetings, and obtain a sponsor for continued support in sobriety. She refused [facility] in [place], [place] and reported that she would stay with a female patient from [facility] post-discharge. This plan was strongly discouraged by [facility] treatment team. Patient's ABH worker, Zoe, was informed of this plan. Patient was advised to call 211 for placement at an emergency [facility] however refused this option. The patient reported feeling safe and ready for discharge. PLAN: 1. Discharge today. 2. F/u at [facility] in [place], [place] tomorrow for IOP intake. 3. F/u with cloak room attendant Dr. Paige Barrett in her outpatient office on 12/30/16 at [address] Per Dr. Barrett's office rental clerk, Dr. Barrett will be in touch with patient if a sooner appointment is required. Patient verbalized understanding. Also, Dr. Barrett provided patient with h/w prescription of Synthroid 175mcg daily, #30 and lab slip for repeat TFTs in 2-3 weeks. 4. All other discharge prescriptions were printed, reviewed with the patient and provided to patient on discharge. 5. F/u with interview at [facility] in [place] on 09/22/16 for [facility] placement. 6. In the event of an emergency, call 911/go to nearest emergency department. Patient verbalized understanding of instruction.
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
[2016-09-19 12:14] VITALS: BP 124/73
== END 2016-09-19 13:25 | DRG 750 ==
LOC: ENRESERVDT → ENRESERVTM → ERH 04:55 → ERHI 13:06 → ENPENDDIS 13:06 → EDPENDDISTM 13:06 → CP SOUTH 13:06
PROVIDERS: Emergency Medicine; Student in an Organized Health Care Education/Training Program; ADMIT Psychiatry & Neurology Psychiatry
DX: F25.9 Schizoaffective disorder, unspecified (principal); F43.10 Post-traumatic stress disorder, unspecified; F12.20 Cannabis dependence, uncomplicated; E03.9 Hypothyroidism, unspecified; F11.21 Opioid dependence, in remission
CPT/HCPCS: 36415; 80307; 86376; 86800; 87040; 87070; 87389; 87450; 87491; 87591; 93005; 93010; G0480; J0456; J3230; J3490